=== PATIENT | female | born 1950 ===

== ENCOUNTER 2020-09-12 08:14 | Outpatient (REF) | payer MEDICARE, MEDICAID, SELFPAY ==
[2020-09-12 11:56] LABS: SARS COV2 PCR INHOUSE NEGATIVE (Negative)
== END 2020-09-12 08:15 | disposition home or self-care (01) ==
LOC: HO.LAB 08:14
PROVIDERS: Visit Provider Internal Medicine
DX: Z20.822 Contact with and (suspected) exposure to COVID-19 (principal)
CPT/HCPCS: C9803; U0003

== ENCOUNTER → 2021-01-09 10:01 | Outpatient (BNVA) | payer MEDICARE, MEDICAID, SELFPAY | PROVIDERS: PCP Nurse Practitioner Family; Visit Provider Internal Medicine Cardiovascular Disease | DX: I25.10 Atherosclerotic heart disease of native coronary artery without angina pectoris (principal); I10 Essential (primary) hypertension; I83.893 Varicose veins of bilateral lower extremities with other complications | CPT/HCPCS: 93005; 99212 ==

== ENCOUNTER 2021-01-10 21:32 | Emergency (ER) | payer MEDICARE, MEDICAID, SELFPAY ==
[2021-01-10 21:36] VITALS: BP 179/70; PULSE 68; RESP 18; TEMP 36.6; O2SAT 99; BMI 29.6
[2021-01-10 22:43] LABS: Basophils Percent Auto 0.4 % (0-2); Eosinophils Absolute Auto 0.1 X10*3/uL (0.0-0.4); Eosinophils Percent Auto 1.4 % (0-4); Hematocrit 39.3 % (37-47); Hemoglobin 12.7 g/dl (12.0-16.0); Imm Gran Abs Auto 0.01 X10*3/uL (0.00-0.03); Imm Gran Pct Auto 0.1 % (0.0-0.4); Lymphocytes Absolute Auto 2.3 X10*3/uL (1.2-4.9); Lymphocytes Percent Auto 27.3 % (20-40); MANUAL DIFF FLAG NO; Mean Corpuscular HGB Conc 32.3 g/dl (31.0-35.0); Mean Corpuscular Hemoglobin 26.6 pg (27.0-33.0); Mean Corpuscular Volume 82.4 fL (80-98); Monocytes Absolute Auto 0.7 X10*3/uL (0.1-1.2); Monocytes Percent Auto 8.3 % (2-11); Neutrophils Absolute Auto 5.4 X10*3/uL (2.0-8.3); Neutrophils Percent Auto 62.5 % (45-73); Platelet Count 338 X10*3/uL (160-400); Red Blood Count 4.77 X10*6/uL (4.20-5.50); White Blood Count 8.6 X10*3/uL (4.8-10.8)
[2021-01-10 23:11] LABS: Glucose Urine UA NEG (NEG); Leukocyte Esterase Urine TRACE (NEG); Nitrite Urine NEG (NEG); UACC Culture Trigger YES; Urine Blood TRACE (NEG); Urine Ketones NEG (NEG); Urine Protein NEG (NEG-TRACE)
[2021-01-10 23:17] LABS: Appearance Urine CLEAR; Color Urine YELLOW
[2021-01-10 23:18] LABS: Anion Gap 13 (12-20); Blood Urea Nitrogen 10 mg/dL (9-16); Calcium 10.8 mg/dL (8.4-10.2); Carbon Dioxide 28 mmol/L (22-29); Chloride 104 mmol/L (96-108); Creatinine Clr Calc Pharmacy 57.9; Estimated Glomerular Filt Rate > 60; Glucose Random 105 mg/dL (60-115); Potassium 3.6 mmol/L (3.3-5.1); Sodium 141 mmol/L (135-145)
[2021-01-10 23:18] LABS: Bacteria Urine 1+ /LPF; Squamous Epithelial Cell Urine 1+ /LPF
--- NOTE | 2021-01-10 23:44 | ED_ITS ---
HPI - General Adult General Chief complaint: General Medical Stated complaint: high blood pressure, history of heart attack Time Seen by Provider: 01/10/21 23:33 Source: patient and family Mode of arrival: ambulatory Limitations: no limitations History of Present Illness HPI narrative: 70 y/o female with history of HTN, CAD, varicose veins who presents to the ER with hypertension. She reports her blood pressure has been elevated today in the 170s systolic. Her usual range is 120-150s. She is on isosorbide, metoprolol, and losartan/hctz which she has been complaint with. She reports a generalized headache earlier today which has since resolved. No vision changes. No chest pain or SOB. She was seen by her Chassis Inspector yesterday Dr. Day with plan to call his office if her BP was persistently elevated. She a dmits to being anxious today and came to the ER for evaluation. MD complaint: HTN Onset (ago): hour(s) Location: head Radiation: non-radiation Severity: moderate Quality: aching Pain Consistency: now resolved Relieving factors: none Exacerbating factors: none Associated symptoms: denies other symptoms Treatments prior to arrival: none Related Data Home Medications Medication Instructions Recorded Confirmed losartan 100 1 tab PO DAILY tab 01/09/21 01/09/21 mg-hydrochlorothiazide 25 mg tablet Previous Rx's Medication Instructions Recorded rosuvastatin 40 mg tablet 40 mg PO DAILY #90 tab 05/16/20 aspirin 81 mg tablet,delayed 81 mg PO DAILY 90 Days #90 tab 05/17/20 release metoprolol succinate 25 mg 25 mg PO DAILY #90 cap 09/14/20 tablet,extended release 24 hr isosorbide mononitrate 60 mg 60 mg PO DAILY #30 tab 01/09/21 tablet,extended release 24 hr Allergies Allergy/AdvReac Type Severity Reaction Status Date / Time peanut [PEANUT] Allergy Unknown HIVES Verified 01/10/21 21:36 peanuts Allergy Unknown rash Uncoded 01/11/20 00:00 Review of Systems Review of Systems: Constitutional: No Fever, No Chills ENT/Mouth: No sore throat, No Rhinorrhea, No Swallowing Difficulty Eyes: No Eye Pain, No vision changes Cardiovascular: No Chest Pain, No SOB, No Orthopnea, No Edema Respiratory: No Cough, No Sputum, No Wheezing, No dyspnea Gastrointestinal: No Nausea, No Vomiting, No Diarrhea, No abdominal Pain Musculoskeletal: No joint pain, No Myalgias Skin: No Skin Lesions, No rash Neuro: No Weakness, No Numbness, No Dizziness,+ Headache (now resolved) Psych: + Anxiety/Panic, No Depression Heme/Lymph: No Bruising, No Lymphadenopathy PMFSH Past Medical History Medical History (Updated 01/10/21 @ 23:51 by LAILA Mckeon) CAD (coronary artery disease) HTN (hypertension) Hyperlipidemia Hypertensive heart disease Hypothyroid Family History Family History Father No problems noted. Mother No problems noted. Social History Social History Patient Tobacco Use Status: Never used Tobacco Advance Directives: No Advance Directives Information Provided: Yes Advance Directives on File: No Physical Exam Vital Signs: Vital Signs: Last Vital Signs Temp 97.9 F 01/10/21 21:36 Pulse 60 01/10/21 23:58 Resp 16 01/10/21 23:58 BP 166/74 H 01/10/21 23:58 Pulse Ox 98 01/10/21 23:58 Body Mass Index 29.6 Appearance: Alert. Oriented X3. No acute distress. Eyes: Pupils equal, round and reactive to light. ENT: Pharynx normal. Neck: Normal inspection. Neck supple. CVS: Normal heart rate and rhythm. Pulses normal. Respiratory: No respiratory distress. Breath sounds normal. Abdomen: Soft and nontender. +BS x4 Skin: Skin warm and dry. Normal skin color. Normal skin turgor. No rashes. Extremities: No lower extremity edema. Neuro: Oriented X 3. No motor deficit. No sensory deficit. Course Course Course Narrative: 70 y/o female with history of HTN, CAD, and varicose veins who presents with HTN at home associated with headache. BP in triage 179/70 with HR 60's. Labs drawn and UA preformed which all were unremarkable. Repeat without intervention was 166/74. She has no headache, vision changes or chest pain. She feels well. She is stable for discharge home with continuation of current antihypertensive regimen and plan to follow up with Dr. Day if her BP remains elevated. Worrisome signs to prompt urgent re-evaluation to the ER were discussed. Stable for d/c home with outpatient follow up. Medical Decision Making Lab Data Result diagrams: 01/10/21 22:37 01/10/21 22:37 Labs: Lab Results 01/10/21 01/10/21 01/10/21 Range/Units 22:37 22:37 22:49 WBC 8.6 (4.8-10.8) X10*3/uL RBC 4.77 (4.20-5.50) X10*6/uL Hgb 12.7 (12.0-16.0) g/dl Hct 39.3 (37-47) % MCV 82.4 (80-98) fL MCH 26.6 L (27.0-33.0) pg MCHC 32.3 (31.0-35.0) g/dl RDW 14.0 (11.0-16.0) % Plt Count 338 (160-400) X10*3/uL MPV 10.0 (9.4-12.3) fL Immature Gran % (Auto) 0.1 (0.0-0.4) % Neut % (Auto) 62.5 (45-73) % Lymph % (Auto) 27.3 (20-40) % [place] % (Auto) 8.3 (2-11) % Eos % (Auto) 1.4 (0-4) % Baso % (Auto) 0.4 (0-2) % Lymph # (Auto) 2.3 (1.2-4.9) X10*3/uL [place] # (Auto) 0.7 (0.1-1.2) X10*3/uL Eos # (Auto) 0.1 (0.0-0.4) X10*3/uL Baso # (Auto) 0.0 (0.0-0.2) X10*3/uL Abs Immat Gran (auto) 0.01 (0.00-0.03) X10*3/uL Absolute Neuts (auto) 5.4 (2.0-8.3) X10*3/uL Absolute Nucleated RBC 0.000 (0.0-0.012) X10*3/uL Nucleated RBC % (auto) 0.0 (0.0-0.2) /100WBC Sodium 141 (135-145) mmol/L Potassium 3.6 (3.3-5.1) mmol/L Chloride 104 (96-108) mmol/L Carbon Dioxide 28 (22-29) mmol/L Anion Gap 13 (12-20) BUN 10 (9-16) mg/dL Creatinine 0.86 (0.5-1.4) mg/dL Estim Creat Clear Calc 57.9 Estimated GFR > 60 Random Glucose 105 (60-115) mg/dL Calcium 10.8 H (8.4-10.2) mg/dL Urine Color YELLOW Urine Appearance CLEAR Urine pH 7.0 (5.0-8.0) Ur Specific [place] 1.010 (1.005-1.025) Urine Protein NEG (NEG-TRACE) MG/DL Urine Glucose (UA) NEG (NEG) MG/DL Urine Ketones NEG (NEG) MG/DL Urine Blood TRACE (NEG) Urine Nitrite NEG (NEG) Ur Leukocyte Esterase TRACE H (NEG) Urine RBC 1-4 (0) /HPF Urine WBC 1-4 (0-4) /HPF Ur Squamous Epith Cells 1+ /LPF Urine Bacteria 1+ /LPF Critical Care Time Critical Care Time Critical Care Time: No Discharge Plan Discharge Clinical Impression: HTN (hypertension) Qualifiers: Hypertension type: primary hypertension Qualified Code(s): I10 - Essential (primary) hypertension Patient Disposition: Home, Self-Care Instructions: Low-Sodium Diet (ED), Hypertension (ED) Additional Instructions: Your lab workup today was unremarkable. Your blood pressure was 166/74. Recommend continuing your current blood pressure medications. Monitor your blood pressure at home after your take your meds. If you find your blood pressure is consistently elevated, call Dr. Day's office to see if he would like to see you in the office or make any medication adjustments. If you develop any chest pain, vision changes, severe headache or any other concerning symptoms, call 911 or come back to the ER for further evaluation. Prescriptions: No Action rosuvastatin 40 mg tablet 40 mg PO DAILY Qty: 90 RF: 3 aspirin 81 mg tablet,delayed release (DR/EC) 81 mg PO DAILY 90 Days Qty: 90 RF: 3 metoprolol succinate 25 mg tablet extended release 24 hr 25 mg PO DAILY Qty: 90 RF: 1 losartan-hydrochlorothiazide 100-25 mg tablet 1 tab PO DAILY RF: 0 isosorbide mononitrate 60 mg tablet extended release 24 hr 60 mg PO DAILY Qty: 30 RF: 0 Referrals: Hany Day MD [Physician] - 1 week (HTN) Interventions: ED Discharge Assessment Last Done: 01/10/21 23:59 Discharge Date/Time: 01/11/21 00:19
[2021-01-10 23:58] VITALS: BP 166/74; PULSE 60; RESP 16; O2SAT 98
== END 2021-01-11 00:19 | disposition home or self-care (01) ==
LOC: HO.ED 01-11
PROVIDERS: Emergency Provider Student in an Organized Health Care Education/Training Program; PCP Nurse Practitioner
DX: I10 Essential (primary) hypertension (principal)
CPT/HCPCS: 36415; 80048; 81001; 81003; 85025; 87086; 99283; 99284

== ENCOUNTER 2021-01-19 09:44 | Outpatient (REF) | payer MEDICARE, MEDICAID, SELFPAY ==
[2021-01-19 11:03] LABS: Cholesterol 131 mg/dL; HDL Cholesterol 37 mg/dL; LDL Cholesterol Calculated 72 mg/dl; Triglycerides 112 mg/dL
== END 2021-01-19 09:45 | disposition home or self-care (01) ==
LOC: HO.LAB 09:44
PROVIDERS: PCP Nurse Practitioner; Visit Provider Internal Medicine Cardiovascular Disease
DX: I25.10 Atherosclerotic heart disease of native coronary artery without angina pectoris (principal)
CPT/HCPCS: 36415; 80061

== ENCOUNTER → 2021-02-08 14:24 | Outpatient (BNVA) | payer MEDICARE, MEDICAID, SELFPAY | PROVIDERS: PCP Nurse Practitioner; Referring Provider Nurse Practitioner; Visit Provider Surgery Vascular Surgery | DX: I83.11 Varicose veins of right lower extremity with inflammation (principal) | CPT/HCPCS: 99202 ==

== ENCOUNTER 2021-02-27 12:29 | Outpatient (REF) | payer MEDICARE, MEDICAID, SELFPAY ==
--- NOTE | ~2021-02-27 | US_ITS ---
EXAMINATION: BILATERAL LOWER EXTREMITY VENOUS ULTRASOUND (Reflux Exam) CLINICAL INDICATION: This is a 70-year-old female with venous insufficiency and varicose veins. COMPARISON: None. TECHNIQUE: Color flow triplex imaging and compression Doppler was performed to evaluate both the deep and the superficial systems bilaterally. To evaluate the superficial system, the examination was performed in the upright position. Color-flow Doppler ultrasound and compression ultrasound were utilized. In addition, maneuvers were utilized to demonstrate reflux. FINDINGS: 1. DEEP VENOUS ULTRASOUND OF THE RIGHT LOWER EXTREMITY: Common Femoral Vein: There is deep vein common femoral reflux with the reflux time 1384 ms. Femoral vein: There is deep vein midfemoral reflux with reflux time of 864 ms. Popliteal Vein: There is deep vein reflux involving the popliteal vein with the reflux time of 1480 ms. Deep Reflux: There is evidence of reflux in the deep system in the common femoral vein extending into the popliteal vein. . There is no evidence of a Thapa's cyst. 2. SUPERFICIAL ULTRASOUND WITH DOPPLER OF RIGHT LOWER EXTREMITY GREAT SAPHENOUS VEIN: Saphenofemoral junction: 1.1 cm. The reflux time is 2364 ms. Mid thigh: 0.8 cm. The reflux time is 3240 ms. Above knee: 1.0 cm. The reflux time is 3316 ms. Below knee: 0.7 cm. The reflux time is 2600 ms. Mid calf: 0.4 cm the reflux time is 3400 ms. Ankle: 0.3 cm. The reflux time is 1832 ms. GSV REFLUX: There is reflux extending throughout the great saphenous vein beginning at the saphenofemoral junction. This is supplying the varicose veins within the leg. DUPLICATED GREAT SAPHENOUS VEIN: There is a 0.5 cm duplicated lateral great saphenous vein without evidence of reflux. SMALL SAPHENOUS VEIN: Upper: 0.5 cm. There is reflux of 1520 ms. Lower: 0.3 cm. No reflux is seen in the distal calf. SSV REFLUX: There is reflux in the small saphenous vein beginning at the junction. VEIN OF GIACOMINI: None Imaged. PERFORATORS: There are calf perforators measuring 0.3 cm without reflux. VARICOSITIES: There are varicose veins in the thigh at the knee and the calf. These are supplied by both the great saphenous vein and small saphenous vein, respectively. In the mid calf varicose veins measure 0.8 cm with the reflux time 1772 ms. At the knee measuring 1.4 cm with reflux time of 2412 ms. In the calf measuring 0.7 cm with the reflux time of 2112 ms. 3. DEEP VENOUS ULTRASOUND OF THE LEFT LOWER EXTREMITY: Common Femoral Vein: Compressible, normal respiratory variation and augmented flow. No reflux. Femoral vein: There is reflux in the mid femoral deep vein system with the reflux time of 1188 ms. Popliteal Vein: There is reflux in the popliteal deep vein system with the reflux time of 1996 ms. Deep Reflux: There is evidence of reflux in the deep system within the femoral vein and the popliteal vein. The reflux is not seen in the common femoral vein 4. SUPERFICIAL ULTRASOUND WITH DOPPLER OF LEFT LOWER EXTREMITY GREAT SAPHENOUS VEIN: Saphenofemoral junction: 0.8 cm. There is no reflux. Mid thigh: 0.3 cm. There is no reflux. Above knee: 0.3 cm there is no reflux. Below knee: 0.4 cm. There is no reflux. Mid calf: 0.2 cm. The reflux time is 2980 ms. Ankle: 0.3 cm. The reflux time is 3128 ms. GSV REFLUX: There is no reflux at the saphenofemoral junction. There is distal great saphenous vein reflux present. DUPLICATED GREAT SAPHENOUS VEIN: None SMALL SAPHENOUS VEIN: Upper: 0.2 cm. There is reflux of 2003 and 40 ms at the junction. Lower: 0.2 cm. There is no reflux at this level. SSV REFLUX: There is reflux in the small saphenous vein at the junction. VEIN OF GIACOMINI: None Imaged. PERFORATORS: None Imaged VARICOSITIES: There are 0.3 and 0.4 cm varicose veins in the thigh and calf, respectively. There is greater than 3 seconds in the calf varicose veins. US/US venous duplex LE BI IMPRESSION: 1. There is a patent right great saphenous vein with reflux throughout. The reflux begins at the saphenofemoral junction and is supplying the varicose veins. 2. There is a patent duplicated right lateral great saphenous vein without reflux. 3. There is a patent right small saphenous vein with reflux at the junction. This is supplying the varicose veins in the calf. 4. There are multiple varicose veins as described in the right leg are supplied by the refluxing superficial venous system. 5. There is a patent left great saphenous vein without evidence of reflux at the junction. There is isolated reflux distally. 6. There is a patent left small saphenous vein with reflux at the junction. 7. There are varicose veins in the left leg with reflux as described. These are supplied by the refluxing small saphenous vein.
== END 2021-02-27 12:30 | disposition home or self-care (01) ==
LOC: HO.US 12:29
PROVIDERS: PCP Nurse Practitioner; Visit Provider Surgery Vascular Surgery
DX: I83.893 Varicose veins of bilateral lower extremities with other complications (principal); I83.11 Varicose veins of right lower extremity with inflammation
CPT/HCPCS: 93970

== ENCOUNTER → 2021-03-15 14:59 | Outpatient (BNVA) | payer MEDICARE, MEDICAID, SELFPAY | PROVIDERS: PCP Nurse Practitioner; Visit Provider Surgery Vascular Surgery | DX: I83.11 Varicose veins of right lower extremity with inflammation (principal) | CPT/HCPCS: 99212 ==

== ENCOUNTER → 2021-03-30 08:54 | Outpatient (BNVA) | payer MEDICARE, MEDICAID, SELFPAY | PROVIDERS: PCP Nurse Practitioner; Visit Provider Surgery Vascular Surgery | DX: I83.11 Varicose veins of right lower extremity with inflammation (principal) | CPT/HCPCS: 36475 ==

== ENCOUNTER 2021-04-02 14:18 | Outpatient (REF) | payer MEDICARE, MEDICAID, SELFPAY ==
--- NOTE | ~2021-04-02 | US_ITS ---
EXAMINATION: US VENOUS ULTRASOUND WITH DOPPLER LOWER EXTREMITY, RIGHT CLINICAL INFORMATION: Status post right RFA. COMPARISON: None TECHNIQUE: Ultrasound of the deep veins is performed from the hip to the calf with compression sonography and color and pulse Doppler assessment. Spectral analysis with color-flow imaging is performed. FINDINGS: There is normal venous compression and respiratory variation and augmented flow. The visualized common femoral vein, superficial femoral vein, profunda femoral vein, popliteal vein, and the trifurcation region shows no evidence of deep venous thrombosis. The peroneal vein is not seen optimally. There is a clot visualized in right greater saphenous vein approximately 2.1 cm from the confluence following right femoral artery ablation There is Thapa's cyst measuring 5.5 x 1.4 x 3.9 cm. There is small anechoic lymph node in the groin measuring 3.2 x 1.0 x 1.6 cm. US/US venous duplex LE RT IMPRESSION: No DVT demonstrated in the right lower extremity. Status post right femoral artery ablation with thrombus visualized in right greater saphenous vein proximal thigh 2.1 cm from the confluence. Small Thapa's cyst measuring 5.5 cm. There is a small right groin lymph node.
== END 2021-04-02 14:19 | disposition home or self-care (01) ==
LOC: HO.US 14:18
PROVIDERS: PCP Nurse Practitioner; Visit Provider Surgery Vascular Surgery
DX: M79.604 Pain in right leg (principal)
CPT/HCPCS: 93971

== ENCOUNTER → 2021-04-12 15:29 | Outpatient (BNVA) | payer MEDICARE, MEDICAID, SELFPAY | PROVIDERS: PCP Nurse Practitioner; Visit Provider Surgery Vascular Surgery | DX: I83.11 Varicose veins of right lower extremity with inflammation (principal) | CPT/HCPCS: 99212 ==

== ENCOUNTER → 2021-05-03 15:28 | Outpatient (BNVA) | payer MEDICARE, MEDICAID, SELFPAY | PROVIDERS: PCP Nurse Practitioner; Visit Provider Surgery Vascular Surgery | DX: I83.11 Varicose veins of right lower extremity with inflammation (principal); I25.10 Atherosclerotic heart disease of native coronary artery without angina pectoris; I11.9 Hypertensive heart disease without heart failure; E03.9 Hypothyroidism, unspecified; E78.5 Hyperlipidemia, unspecified; Z91.010 Allergy to peanuts | CPT/HCPCS: 99212 ==

== ENCOUNTER 2021-12-12 13:19 | Outpatient (REF) | payer MEDICARE, MEDICAID, SELFPAY ==
--- NOTE | ~2021-12-12 | MM_ITS ---
EXAMINATION: BONE DENSITOMETRY CLINICAL INDICATION: Menopause. COMPARISON: Previous BD dated 11/27/2017 and baseline BD dated 04/25/2011. TECHNIQUE: Using a [employer] DXA System (software version: 13.1) manufactured by [employer], dual-energy x-ray absorptiometry was performed of the lumbar spine and left hip. The images are of good technical quality. Summary results are attached. FINDINGS: AP SPINE L1-L4: Current: BMD 0.976 g/cm2, Z-score -0.5, T-score -1.7, osteopenia, 8.7% decrease from previous, 6.9% decrease from baseline (<5% change is not significant). Prior: BMD 1.069 g/cm2. Baseline: BMD 1.048 g/cm2. LEFT FEMUR, NECK: Current: BMD 0.898 g/cm2, Z-score 0.4, T-score -1.0, normal. Prior: BMD 0.929 g/cm2. Baseline: BMD 0.968 g/cm2. LEFT FEMUR, TOTAL: Current: BMD 0.983 g/cm2, Z-score 0.9, T-score -0.2, normal, 5.4% decrease from previous, 4.7% decrease from baseline (<5% change is not significant). Prior: BMD 1.039 g/cm2. Baseline: BMD 1.031 g/cm2. IDENTIFIED RISK FACTORS: Early menopause, secondary osteoporosis, hysterectomy, bilateral oophorectomy. HISTORY OF FRACTURE: None listed. MEDICATIONS: None listed. MM/XR DEXA axial skeleton IMPRESSION: 1. DIAGNOSIS: Osteopenia based on the lowest T-score value of -1.7 in the lumbar spine applying World Health Organization criteria. 2. 10-YEAR FRACTURE RISK PREDICTION, FRAX: Major osteoporotic fracture (clinical spine, forearm, hip or shoulder) 4.6%. Hip fracture 0.5%. 3. Treatment Recommendations: NOF guidelines recommend consideration for treatment in postmenopausal women and men age 50 and older presenting with the following: -A hip or vertebral (clinical or morphometric) fracture. -T-score less than or equal to -2.5 at the femoral neck or spine after appropriate evaluation to exclude secondary causes. -Low bone mass at the hip or spine and a 10-year fracture probability by FRAX of greater than or equal to 3% for hip fracture or greater than or equal to 20% for major osteoporotic fracture based on the [place] adapted WHO algorithm. 4. Other Recommendations: All treatment decisions require clinical judgment and consideration of individual patient factors, including patient preferences, comorbidities, previous drug use, risk factors not captured in the FRAX model (e.g. frailty, falls, vitamin D deficiency, increased bone turnover, interval significant decline in bone density) and possible under or overestimation of fracture risk by FRAX. Additional medical evaluation for secondary cause of low bone mineral density may be appropriate. FUTURE SCAN RECOMMENDATION: People with diagnosed cases of osteoporosis or at high risk for fracture should have regular bone mineral density tests. For patients eligible for Medicare, routine testing is allowed once every 2 years. The testing frequency can be increased to one year for patients who have rapidly progressing disease, those who are receiving or discontinuing medical therapy to restore bone mass, or have additional risk factors.
--- NOTE | ~2021-12-12 | MM_ITS ---
EXAMINATION: MM SCREENING DIGITAL BREAST TOMOSYNTHESIS, BILATERAL CLINICAL INFORMATION: Screening. Asymptomatic. The lifetime risk of breast cancer based on the Tyrer-Cuzick Model is 2%. COMPARISON: Mammography: 11/13/2017, 08/23/2016, 07/07/2015 TECHNIQUE: Digital breast tomosynthesis is performed in both the craniocaudal and mediolateral oblique views along with computer-aided detection (CAD). Synthesized 2D images are generated from the tomosynthesis. FINDINGS: There are scattered areas of fibroglandular density (ACR BI-RADS breast composition Category b). There are no significant masses, abnormal calcifications, or other abnormalities. Parenchymal pattern is similar to prior studies. The axilla and skin contours are unremarkable. MM/MM tomosynthesis screening BI IMPRESSION: No mammographic evidence of malignancy. ASSESSMENT: BI-RADS 1: Negative RECOMMENDATION: Routine annual mammography screening. This patient's information was entered into a reminder system with a target due date for their next mammogram.
== END 2021-12-12 13:20 | disposition home or self-care (01) ==
LOC: HO.MAMMO 13:19
PROVIDERS: PCP Nurse Practitioner; Visit Provider Nurse Practitioner
DX: Z12.31 Encounter for screening mammogram for malignant neoplasm of breast (principal); Z13.820 Encounter for screening for osteoporosis; Z78.0 Asymptomatic menopausal state
CPT/HCPCS: 77063; 77067; 77080

== ENCOUNTER → 2022-01-10 11:00 | Outpatient (BNVA) | payer MEDICARE, MEDICAID, SELFPAY | PROVIDERS: PCP Nurse Practitioner; Referring Provider Nurse Practitioner; Visit Provider Internal Medicine Cardiovascular Disease | DX: I25.10 Atherosclerotic heart disease of native coronary artery without angina pectoris (principal); I10 Essential (primary) hypertension | CPT/HCPCS: 93005; 99212 ==

== ENCOUNTER → 2022-05-15 11:17 | Outpatient (BNVA) | payer MEDICARE, MEDICAID, SELFPAY | PROVIDERS: PCP General Practice; Visit Provider Nurse Practitioner Family | DX: K21.9 Gastro-esophageal reflux disease without esophagitis (principal); R14.0 Abdominal distension (gaseous); Z12.11 Encounter for screening for malignant neoplasm of colon | CPT/HCPCS: 99202 ==

== ENCOUNTER 2022-06-27 03:55 | Emergency (ER) | payer MEDICARE, MEDICAID, SELFPAY ==
--- NOTE | 2022-06-27 | ECG_ITS ---
Test Reason : CHEST PAIN Blood Pressure : / mmHG Vent. Rate : 079 BPM Atrial Rate : 079 BPM P-R Int : 186 ms QRS Dur : 094 ms QT Int : 398 ms P-R-T Axes : 057 018 046 degrees QTc Int : 456 ms Normal sinus rhythm Normal ECG When compared with ECG of 15-OCT-2015 00:19, [place] interval has decreased Nonspecific T wave abnormality now evident in Lateral leads Referred By: Generic ED Physician Electronically Signed By:John Olson
--- NOTE | ~2022-06-27 | XR_ITS ---
EXAMINATION: XR CHEST CLINICAL INFORMATION: Chest pain COMPARISON: 10/15/2015 TECHNIQUE: Frontal view of the chest was obtained. FINDINGS: The lungs are well expanded. There is no focal consolidation, edema, or effusion. No pneumothorax. The cardiomediastinal silhouette is within normal limits. No acute osseous abnormality. XR/XR chest 1V IMPRESSION: No acute pulmonary disease.
[2022-06-27 03:59] VITALS: BP 148/80; PULSE 96; O2SAT 96; BMI 31.8
[2022-06-27 04:10] VITALS: BP 175/87; PULSE 80; RESP 22; TEMP 37.2; O2SAT 97
[2022-06-27 04:14] LABS: Basophils Absolute Auto 0.1 X10*3/uL (0.0-0.2); Basophils Percent Auto 0.9 % (0-2); Eosinophils Absolute Auto 0.2 X10*3/uL (0.0-0.4); Eosinophils Percent Auto 3.3 % (0-4); Hematocrit 42.5 % (37.0-47.0); Hemoglobin 13.9 g/dl (12.0-16.0); Imm Gran Abs Auto 0.02 X10*3/uL (0.00-0.03); Imm Gran Pct Auto 0.3 % (0.0-0.4); Lymphocytes Absolute Auto 2.6 X10*3/uL (1.2-4.9); Lymphocytes Percent Auto 36.7 % (20-40); MANUAL DIFF FLAG NO; Mean Corpuscular HGB Conc 32.7 g/dl (31.0-35.0); Mean Corpuscular Hemoglobin 27.6 pg (27.0-33.0); Mean Corpuscular Volume 84.3 fL (80.0-98.0); Mean Platelet Volume 9.8 fL (9.4-12.3); Monocytes Absolute Auto 0.7 X10*3/uL (0.1-1.2); Monocytes Percent Auto 10.5 % (2-11); Neutrophils Absolute Auto 3.4 x10*3/uL (2.0-8.3); Neutrophils Percent Auto 48.3 % (45-73); Platelet Count 342 X10*3/uL (160-400); Red Blood Count 5.04 X10*6/uL (4.20-5.50); Red Cell Distribution Width 14.2 % (11.0-16.0)
[2022-06-27 04:37] LABS: Troponin-I High Sensitivity < 3.5 ng/L (<3.5-17.0)
[2022-06-27 04:41] LABS: Alanine Aminotransferase 61 U/L (0-31); Albumin Level 4.2 g/dL (3.5-5.0); Alkaline Phosphatase 82 U/L (39-117); Anion Gap 14 (12-20); Aspartate Amino Transferase 57 U/L (5-31); Bilirubin Total 0.4 mg/dL (0.0-1.0); Blood Urea Nitrogen 11 mg/dL (9-16); Calcium 9.7 mg/dL (8.4-10.2); Carbon Dioxide 23 mmol/L (22-29); Chloride 108 mmol/L (96-108); Creatinine Clr Calc Pharmacy 67.8; Estimated Glomerular Filt Rate > 60; Glucose Random 104 mg/dL (60-115); Potassium 3.5 mmol/L (3.3-5.1); Sodium 141 mmol/L (135-145); Total Protein 7.1 g/dL (6.5-8.0)
--- NOTE | 2022-06-27 05:46 | PC.NURSE ---
Pt resting quietly, no needs expressed at this time.
--- NOTE | 2022-06-27 06:13 | ED.CHESTPAIN ---
HPI - Chest Pain General Chief Complaint: Chest Pain Stated Complaint: Left Sided Cp Time Seen by Provider: 06/27/22 06:08 Source: patient and family Mode of arrival: ambulatory Limitations: no limitations History of Present Illness HPI narrative: Patient comes to the emergency room complaining of 2 days of intermittent chest pain. Patient states that she feels something sharp that last for less than a 2nd and then goes away. Patient states she has had this sharp pains multiple times in the last couple of days. At this time, patient has no chest pain or shortness of breath. EN route to the hospital, patient was given aspirin and nitroglycerin by the paramedics. At this time, patient is asymptomatic Related Data Home Medications Medication Instructions Recorded Confirmed levothyroxine 88 mcg tablet 88 mcg PO DAILY 03/30/21 Previous Rx's Medication Instructions Recorded aspirin 81 mg tablet,delayed 81 mg PO DAILY 90 days #90 tabs 05/17/20 release metoprolol succinate 25 mg 25 mg PO DAILY #90 caps 09/14/20 tablet,extended release 24 hr losartan 100 1 tab PO DAILY 90 days #90 tabs 09/19/21 mg-hydrochlorothiazide 25 mg tablet isosorbide mononitrate 60 mg 60 mg PO DAILY 90 days #90 tabs 11/14/21 tablet,extended release 24 hr amlodipine 2.5 mg tablet 2.5 mg PO QPM #30 tabs 01/10/22 rosuvastatin 40 mg tablet 40 mg PO DAILY #90 tabs 05/01/22 bisacodyl 5 mg tablet,delayed 10 mg PO ONCE 1 day #2 tabs 05/15/22 release (Dulcolax (bisacodyl)) polyethylene glycol 3350 17 238 g PO ONCE #238 grams 05/15/22 gram/dose oral powder (Miralax) Allergies Allergy/AdvReac Type Severity Reaction Status Date / Time peanut [PEANUT] Allergy Unknown HIVES Verified 05/15/22 11:38 peanuts Allergy Unknown rash Uncoded 04/12/21 15:36 Review of Systems Review of Systems: Constitutional : No Weight loss, No Fever, No Chills, No Night Sweats, No Fatigue, No Malaise ENT/Mouth : No Hearing loss, No Ear Pain, No Nasal Congestion, No Sinus Pain, No Hoarseness, No sore throat, No Rhinorrhea, No Swallowing Difficulty Eyes: No Eye Pain, No Swelling, No Redness, No Foreign Body, No Discharge, No Vision Changes Cardiovascular : Complaining of intermittent sharp Chest Pain, No SOB, No Dyspnea on Exertion, No Orthopnea, No Edema, No Palpitations Respiratory : No Cough, No Sputum, No Wheezing, No Smoke Exposure, No Dyspnea Gastrointestinal : No Nausea, No Vomiting, No Diarrhea, No Constipation, No abdominal Pain, No Hematochezia, No Melena Genitourinary : no irregular bleeding, No Dysuria, No Urinary Frequency, No Hematuria, No Urinary Incontinence, No Urgency, No Flank Pain, No Urinary Flow Changes, No Hesitancy Musculoskeletal : No joint pain, No Myalgias, No Joint Swelling Skin : No Skin Lesions, No rash Neuro : No Weakness, No Numbness, No Paresthesias, No Loss of Consciousness, No Dizziness, No Headache Psych : No Anxiety/Panic, No Depression, No SI/HI/AH/VH, No Social Issues, Heme/Lymph: No Bruising, No Bleeding,No Lymphadenopathy Endocrine : No Polyuria, No Polydipsia, No Temperature Intolerance [facility] Past Medical History Medical History CAD (coronary artery disease) HTN (hypertension) Hyperlipidemia Hypertensive heart disease Hypothyroid Family History Family History Father No problems noted. Mother No problems noted. Social History Social History Patient Tobacco Use Status: Never used Tobacco Advance Directives: No Physical Exam Vital Signs: Vital Signs: Last Vital Signs Temp 99.0 F 06/27/22 04:10 Pulse 80 06/27/22 04:10 Resp 22 H 06/27/22 04:10 BP 175/87 H 06/27/22 04:10 Pulse Ox 97 06/27/22 04:10 O2 Del Method 06/27/22 04:10 BMI result Body Mass Index 31.8 Const: Other: Appearance: Alert. Oriented X3. No acute distress. Eyes: Pupils equal, round and reactive to light. ENT: Pharynx normal. Neck: Normal inspection. Neck supple. No lymph nodes noted. No crepitus CVS: Normal heart rate and rhythm. Pulses normal. Normal S1 and S2 Respiratory: No respiratory distress. Breath sounds normal. No Wheezing. No rales Abdomen: Soft and nontender. No rigidity. No distention. Skin: Skin warm and dry. Normal skin color. Normal skin turgor. Extremities: No lower extremity edema. No Lacerations. No Rash Neuro: Oriented X 3. No motor deficit. No sensory deficit. Moving all extremities. No slurred speech. CN 2 through 12 grossly intact Psych: calm, cooperative, normal affect Course Course Course Narrative: Patient is asymptomatic, EKG within normal limits, troponin negative. Medical Decision Making Medical Decision Making [facility] Narrative: Patient's troponin 1. Negative, EKG within normal limits, patient asymptomatic. Patient unlikely to have chest pain secondary to cardiac etiology. Most likely musculoskeletal. Patient has history coronary artery disease. Troponin 2. Pending 4 07:00. Anticipating that the patient will be discharged home. Sign-out given to Dr. Lord Differential Diagnosis Differential Diagnoses: The differential diagnosis associated with the presentation includes (ACS, costochondritis, pleurisy) Lab Data [facility] Lab Attestation statement: I reviewed the patient's lab results. 06/27/22 04:08 06/27/22 04:08 Labs: Lab Results 06/27/22 06/27/22 06/27/22 Range/Units 04:08 04:08 04:08 WBC 7.0 (4.8-10.8) X10*3/uL RBC 5.04 (4.20-5.50) X10*6/uL Hgb 13.9 (12.0-16.0) g/dl Hct 42.5 (37.0-47.0) % MCV 84.3 (80.0-98.0) fL MCH 27.6 (27.0-33.0) pg MCHC 32.7 (31.0-35.0) g/dl RDW 14.2 (11.0-16.0) % Plt Count 342 (160-400) X10*3/uL MPV 9.8 (9.4-12.3) fL Immature Gran % (Auto) 0.3 (0.0-0.4) % Neut % (Auto) 48.3 (45-73) % Lymph % (Auto) 36.7 (20-40) % Boyle % (Auto) 10.5 (2-11) % Eos % (Auto) 3.3 (0-4) % Baso % (Auto) 0.9 (0-2) % Lymph # (Auto) 2.6 (1.2-4.9) X10*3/uL Boyle # (Auto) 0.7 (0.1-1.2) X10*3/uL Eos # (Auto) 0.2 (0.0-0.4) X10*3/uL Baso # (Auto) 0.1 (0.0-0.2) X10*3/uL Abs Immat Gran (auto) 0.02 (0.00-0.03) X10*3/uL Absolute Neuts (auto) 3.4 (2.0-8.3) x10*3/uL Absolute Nucleated RBC 0.000 (0.0-0.012) X10*3/uL Nucleated RBC % (auto) 0.0 (0.0-0.2) /100WBC Sodium 141 (135-145) mmol/L Potassium 3.5 (3.3-5.1) mmol/L Chloride 108 (96-108) mmol/L Carbon Dioxide 23 (22-29) mmol/L Anion Gap 14 (12-20) BUN 11 (9-16) mg/dL Creatinine 0.75 (0.5-1.4) mg/dL Estim Creat Clear Calc 67.8 Estimated GFR > 60 Random Glucose 104 (60-115) mg/dL Calcium 9.7 D (8.4-10.2) mg/dL Total Bilirubin 0.4 (0.0-1.0) mg/dL AST 57 H (5-31) U/L ALT 61 H (0-31) U/L Alkaline Phosphatase 82 (39-117) U/L Troponin I High Sens < 3.5 (<3.5-17.0) ng/L Total Protein 7.1 (6.5-8.0) g/dL Albumin 4.2 (3.5-5.0) g/dL Independent Interpretation I performed an independent interpretation of an: EKG (My interpretation: Sinus rhythm, heart rate 79, no ST segment depression or elevation, no T-wave inversion, QTC 456) and Plain X-Ray Interpretation: My interpretation of chest x-ray: No consolidation, no rib fractures or pneumothorax Radiology Impression Discussion of test interpretation with radiology: I have reviewed the radiologist's reading. Radiologist Impression: COMPARISON: 10/15/2015 TECHNIQUE: Frontal view of the chest was obtained. FINDINGS: The lungs are well expanded. There is no focal consolidation, edema, or effusion. No pneumothorax. The cardiomediastinal silhouette is within normal limits. No acute osseous abnormality. XR/XR chest 1V IMPRESSION: No acute pulmonary disease. Discharge Plan Discharge Clinical Impression: Atypical chest pain Patient Disposition: Still a Patient Instructions: Chest Pain (ED) Additional Instructions: Please follow-up with your primary care physician tomorrow. If you have any worsening or new symptoms, please return to the emergency room or call 911 Prescriptions: No Action aspirin 81 mg tablet,delayed release (DR/EC) 81 mg PO DAILY 90 Days Qty: 90 3RF metoprolol succinate 25 mg tablet extended release 24 hr 25 mg PO DAILY Qty: 90 1RF losartan-hydrochlorothiazide 100-25 mg tablet 1 tab PO DAILY 90 Days Qty: 90 3RF isosorbide mononitrate 60 mg tablet extended release 24 hr 60 mg PO DAILY 90 Days Qty: 90 3RF rosuvastatin 40 mg tablet 40 mg PO DAILY Qty: 90 3RF bisacodyl [Dulcolax (bisacodyl)] 5 mg tablet,delayed release (DR/EC) 10 mg PO ONCE 1 Days Qty: 2 0RF Rx Instructions: take 2 tabs at noon the day before your colonoscopy polyethylene glycol 3350 [Miralax] 17 gram/dose powder 238 g PO ONCE Qty: 238 0RF Rx Instructions: As directed by gastroenterology department at [facility] levothyroxine 88 mcg tablet 88 mcg PO DAILY amlodipine 2.5 mg tablet 2.5 mg PO QPM Qty: 30 0RF
[2022-06-27 06:49] VITALS: BP 151/69; PULSE 65; RESP 18; O2SAT 96
[2022-06-27 07:21] LABS: Troponin-I High Sensitivity 4.1 ng/L (<3.5-17.0)
[2022-06-27 07:27] VITALS: BP 183/79; PULSE 69; RESP 14; TEMP 36.7; O2SAT 98
--- NOTE | 2022-06-27 09:17 | PC.NURSE ---
pt is a/o x 4 no sob/rosenda noted speaks in full sentences. lungs - cta. heart sounds regular. denies any chest pain. abd soft and non-tender. no edema noted. pt aware of plan of care.
[2022-06-27 09:38] VITALS: BP 150/74; PULSE 72; RESP 15; TEMP 36.7; O2SAT 98
== END 2022-06-27 09:39 | disposition home or self-care (01) ==
PROVIDERS: Emergency Provider Emergency Medicine; PCP General Practice
DX: R07.89 Other chest pain (principal); I10 Essential (primary) hypertension; E78.5 Hyperlipidemia, unspecified; Z79.82 Long term (current) use of aspirin; Z79.899 Other long term (current) drug therapy; Z79.02 Long term (current) use of antithrombotics/antiplatelets
CPT/HCPCS: 36415; 71045; 80053; 84484; 85025; 93005; 99283; 99284

== ENCOUNTER 2022-10-23 08:48 | Day surgery (SDC) | payer MEDICARE, MEDICAID, SELFPAY ==
[2022-08-30 14:50] VITALS: BMI 33.7
--- NOTE | 2022-10-22 11:59 | P.CONAN_ITS ---
Documented by User: Paloma Orozco NP 10/22/22 12:02 HPI - Anesthesia Eval Consult details Narrative: 71yo F for Colonoscopy [facility] ED 06/2022 with atypical CP - nml EKG, negative serial trops Previously cleared by cardiology [facility] Active Problems Active Problems: All Active Problems (Updated 06/28/22 @ 00:01 by Background Ga) Varicose veins of right lower extremity with inflammation (Acute) Varicose veins of both legs with edema (Acute) Hyperlipidemia (Acute) HTN (hypertension) (Acute) CAD (coronary artery disease) (Acute) Past Medical History Medical History CAD (coronary artery disease) HTN (hypertension) Hyperlipidemia Hypertensive heart disease Hypothyroid Family History Family History Father No problems noted. Mother No problems noted. Social History Social History Patient Tobacco Use Status: Never used Tobacco Advance Directives: No Advance Directives Information Provided: Yes Meds Allergies Allergy/AdvReac Type Severity Reaction Status Date / Time peanut [PEANUT] Allergy Unknown HIVES/RASH Verified 10/22/22 11:56 Home Medications Medication Instructions Recorded Confirmed Last Taken Type levothyroxine 88 mcg tablet 88 mcg PO DAILY 03/30/21 Unknown History Exam Exam Date and Time: October 22, 2022 1159 Height,Weight and Vital Signs: Height 5 ft 2.25 in Weight 84.538 kg Narrative Narrative: EKG 06/2022 Vent. Rate : 079 BPM ? ? Atrial Rate : 079 BPM ?? P-R Int : 186 ms? QRS Dur : 094 ms ? ? QT Int : 398 ms ? ? ? P-R-T Axes : 057 018 046 degrees ?? QTc Int : 456 ms ? Normal sinus rhythm Normal ECG When compared with ECG of 15-OCT-2015 00:19, MA interval has decreased Nonspecific T wave abnormality now evident in Lateral leads Assessment and Plan Assessment Anesthesia Assessment: Chart Reviewed Documented by User: Michelle Betancourt MD 10/23/22 09:40 [facility] Past Medical History Medical History CAD (coronary artery disease) HTN (hypertension) Hyperlipidemia Hypertensive heart disease Hypothyroid Family History Family History Father No problems noted. Mother No problems noted. Family history of problems with anesthesia: No Surgical History History of Problems with Anesthesia: No Social History Social History Patient Tobacco Use Status: Never used Tobacco Advance Directives: No Advance Directives Information Provided: Yes Meds Allergies Allergy/AdvReac Type Severity Reaction Status Date / Time peanut [PEANUT] Allergy Unknown HIVES/RASH Verified 10/22/22 11:56 Home Medications Medication Instructions Recorded Confirmed Last Taken Type levothyroxine 88 mcg tablet 88 mcg PO DAILY 03/30/21 Unknown History Exam Airway Mallampati Class: II (removable partial) TM Dist: >3cm Neck ROM: Full Heart: rrr Lungs: cta Assessment and Plan Assessment Anesthesia Assessment: Anesthesia Plan Discussed Final Anesthetic Review Family History of Problems with Anesthesia: No History of Problems with Anesthesia: No NPO: Yes ASA Class: III Final Preanesthetic Review: No Changes in Pt Med Stat, Meds/Allgs Chart Reviewed and Consent Obtained/Reviewed Patient Risk: Intermediate Procedure Risk: Intermediate Anesthetic Plan Anesthetic Plan: MAC: Disposition: Standard PACU
[2022-10-23] MEDS: Lactated Ringers 1,000 ML 100 ML IVCONT (09:52)
--- NOTE | 2022-10-23 09:59 | PC.NURSE ---
initial bp 202/94 hr stach 116 - reports anxiety and high bp when first in hospital or md office. Dr. Betancourt aware. order received for metoprolol 2.5mg iv, pulled up but recycle bp 178/99 at 10:00 - updated Dr. Betancourt, to hold metoprolol
[2022-10-23 10:00] VITALS: BP 178/99; PULSE 85
[2022-10-23 10:10] VITALS: BMI 32.3
--- NOTE | 2022-10-23 10:12 | MHC.SHP ---
Pre-Procedural Eval Section A Date of Service: 10/23/22 Section B Chief Complaint: pos cologuard test Relevant Family History (Specify if Yes): No Relevant Social History: None Present Medications: see Short Stay Collaborative assessment Medical History: Significant History (CAD (coronary artery disease) HTN (hypertension) Hyperlipidemia Hypertensive heart disease Hypothyroid) History of Previous Operations: No relevant previous surgery Allergies: Allergies Allergy/AdvReac Type Severity Reaction Status Date / Time peanut [PEANUT] Allergy Unknown HIVES/RASH Verified 10/22/22 11:56 Review of Systems Sugical H&P ROS: Negative: Constitution, Cardiovascular, Respiratory, Neurological, Psychiatric, Hem-Onc, Allergic/Immunologic, Gastrointestinal, Genitourinary, Musculoskeletal, Integumentary, Endocrine and Eyes/Ears/Nose/Throat Exam Surgical H&P Exam: Normal: HEENT, Normal: Heart, Normal: Lungs, Normal: Extremities, Normal: Abdomen, Normal: Skin and Normal: Neurological Plan Diagnosis/Plan: Unchanged I have reviewed the history and physical and performed a pertinent physical examination on my patient. No changes have occurred unless specified. Time Spent With Patient Time: Total time managing care of this patient today ____ minutes.
[2022-10-23 10:14] VITALS: BP 202/94; PULSE 109; RESP 18; TEMP 36.1; O2SAT 100
--- NOTE | 2022-10-23 10:14 | W.PM.OPN ---
Operative Note Operative Note Date of Service: 10/23/22 Narrative: Operative Information Procedure Description: Colonoscopy Indication: pos cologuard Anesthesia: MAC COLONOSCOPY Instrument: Olympus variable stiffness pediatric scope 190L Colonoscopy Monitoring: Vital signs and clinical assessment, continuous EKG monitoring, Pulse oximetry, Carbon Dioxide monitoring and blood pressure monitoring were done throughout the procedure. Colon withdrawal time was 25 minutes. Procedure: The patient was placed in the left lateral decubitis position and pre-procedure medications were administered. After a digital rectal examination of the ano-rectum, the video colonoscope was inserted into the rectum and advanced through the colon to the cecum/TI. The colonoscope was slowly withdrawn in a retrograde panoramic fashion and the colon mucosa was carefully examined including a retroflexed view of the rectum. Findings and interventions are described below. Procedure Difficulty: easy Findings: Terminal Ileum-normal Cecum:normal Ascending Colon: few diverticula seen, over the ileocecal valve there was a polypoid area noted 8-10 mm, hard to say if this was just an extension of the ileocecal muocsa which had prolapsed, it was raised with eleview and removed with hot snare Transverse Colon -normal Descending Colon:normal Sigmoid Colon: moderate diverticulosis, at 30 cm from anal verge a mass like semi pedunculated leison occupying 5-60% of lumen was noted. It looked irregular and was biopsied. Rectum: Retroflexion with small internal hemorrhoids, grade I Anorectum - normal Colon preparation: [place] Bowel Preparation Scale Right colon; 2 Transverse colon: 2 Left colon; 2 (0 = Unprepared colon segment with mucosa not seen due to solid stool that cannot be cleared. 1 = Portion of mucosa of the colon segment seen, but other areas of the colon segment not well seen due to staining, residual stool and/or opaque liquid. 2 = Minor amount of residual staining, small fragments of stool and/or opaque liquid, but mucosa of colon segment seen well. 3 = Entire mucosa of colon segment seen well with no residual staining, small fragments of stool or opaque liquid) Impression and Post Procedure Diagnosis: sigmoid mass lesion ileocecal polyp diverticulosis Plan: High fiber diet leaflet Avoid straining at stool, epsom salts and sitz bath, anusol supps or cream await bx, if pos for neoplasia then refer colorectal, if neg then can consider endoscopic removal --the lesion was pretty soft Repeat Colonoscopy in 1 year or earlier if clinically indicated Above findings were reviewed with the patient and relevant handouts were provided if indicated.
[2022-10-23 11:09] VITALS: BP 109/64; PULSE 60; RESP 16; TEMP 36.1; O2SAT 95
[2022-10-23 11:24] VITALS: BP 155/78; PULSE 59; RESP 16; TEMP 37.2; O2SAT 98
== END 2022-10-23 12:50 ==
PROVIDERS: PCP General Practice; Visit Provider Internal Medicine Gastroenterology
PROC: 0DJD8ZZ Inspection of Lower Intestinal Tract, Via Natural or Artificial Opening Endoscopic (ICD-10-PCS; CPT 45378; principal; 2022-10-23 10:30)
DX: R19.5 Other fecal abnormalities (principal); K63.5 Polyp of colon; K63.89 Other specified diseases of intestine; D37.4 Neoplasm of uncertain behavior of colon; K57.30 Diverticulosis of large intestine without perforation or abscess without bleeding; K64.0 First degree hemorrhoids; I25.10 Atherosclerotic heart disease of native coronary artery without angina pectoris; I11.9 Hypertensive heart disease without heart failure; E78.5 Hyperlipidemia, unspecified; E03.9 Hypothyroidism, unspecified; Z79.82 Long term (current) use of aspirin; Z79.899 Other long term (current) drug therapy; Z91.010 Allergy to peanuts
CPT/HCPCS: 45385; 45380; 45381; 88305

== ENCOUNTER 2022-11-01 12:20 | Outpatient (REF) | payer MEDICARE, MEDICAID, SELFPAY ==
[2022-11-01 13:20] LABS: MANUAL DIFF FLAG NO
[2022-11-01 14:03] LABS: Basophils Percent Auto 0.5 % (0-2); Eosinophils Absolute Auto 0.1 X10*3/uL (0.0-0.4); Eosinophils Percent Auto 1.8 % (0-4); Hematocrit 41.8 % (37.0-47.0); Hemoglobin 13.5 g/dl (12.0-16.0); Imm Gran Abs Auto 0.02 X10*3/uL (0.00-0.03); Imm Gran Pct Auto 0.3 % (0.0-0.4); Lymphocytes Absolute Auto 1.5 X10*3/uL (1.2-4.9); Lymphocytes Percent Auto 24.1 % (20-40); Mean Corpuscular HGB Conc 32.3 g/dl (31.0-35.0); Mean Corpuscular Hemoglobin 27.8 pg (27.0-33.0); Mean Corpuscular Volume 86.2 fL (80.0-98.0); Mean Platelet Volume 10.3 fL (9.4-12.3); Monocytes Absolute Auto 0.5 X10*3/uL (0.1-1.2); Monocytes Percent Auto 8.4 % (2-11); Neutrophils Percent Auto 64.9 % (45-73); Platelet Count 330 X10*3/uL (160-400); Red Blood Count 4.85 X10*6/uL (4.20-5.50); Red Cell Distribution Width 13.9 % (11.0-16.0); White Blood Count 6.2 X10*3/uL (4.8-10.8)
[2022-11-01 14:44] LABS: Alanine Aminotransferase 51 U/L (0-31); Albumin Level 4.2 g/dL (3.5-5.0); Alkaline Phosphatase 76 U/L (39-117); Anion Gap 11 (12-20); Aspartate Amino Transferase 42 U/L (5-31); Bilirubin Total 0.7 mg/dL (0.0-1.0); Blood Urea Nitrogen 14 mg/dL (9-16); Calcium 10.2 mg/dL (8.4-10.2); Carbon Dioxide 30 mmol/L (22-29); Chloride 103 mmol/L (96-108); Estimated Glomerular Filt Rate > 60; Glucose Random 105 mg/dL (60-115); Potassium 4.1 mmol/L (3.3-5.1); Sodium 140 mmol/L (135-145); Total Protein 6.9 g/dL (6.5-8.0)
== END 2022-11-01 12:21 | disposition home or self-care (01) ==
LOC: HO.LAB 12:20
PROVIDERS: PCP General Practice; Referring Provider General Practice; Visit Provider Internal Medicine Gastroenterology
DX: K75.81 Nonalcoholic steatohepatitis (NASH) (principal); K63.89 Other specified diseases of intestine; K63.9 Disease of intestine, unspecified
CPT/HCPCS: 36415; 80053; 82378; 85025; 99212

== ENCOUNTER 2022-11-12 05:59 | Outpatient (REF) | payer MEDICARE, MEDICAID, SELFPAY ==
--- NOTE | ~2022-11-12 | CT_ITS ---
EXAMINATION: CT ABDOMEN AND PELVIS WITH CONTRAST CLINICAL INFORMATION: Dysplastic polyps in the right colon and sigmoid colon with dysplasia. COMPARISON: Previous CT of the abdomen and pelvis, most recent January 2013. TECHNIQUE: Multidetector volumetric images were obtained from the superior aspect of the liver through the pubic symphysis following administration 85 mL of Omnipaque 350 intravenous contrast. Sagittal and coronal reformatted images were obtained on the technologist's workstation. Oral contrast: Yes This CT examination was performed using dose optimization techniques as appropriate, variously including the following: *Automated exposure control *Adjustment of mA and/or kV according to patient size (this includes techniques or standardized protocols for targeted exams where dose is matched to indication/reason for exam; i.e. extremities or head) *Use of iterative reconstruction technique DLP: 378 mGy-cm. FINDINGS: LUNG BASES: The visualized lung bases are unremarkable. LIVER, GALLBLADDER, AND BILIARY TREE: Fatty liver. No focal hepatic lesion or biliary ductal dilatation is present. The gallbladder is unremarkable with no evidence of radiopaque gallstones, gallbladder wall thickening, or obvious pericholecystic inflammatory changes. PANCREAS: Unremarkable. SPLEEN: Unremarkable. ADRENAL GLANDS: Unremarkable. KIDNEYS AND URETERS: The kidneys are normal in size, shape, and attenuation. No hydronephrosis, hydroureter, or calculi seen. No perinephric stranding. BLADDER: Not optimally distended. GASTROINTESTINAL TRACT: No definite colon mass is seen. There is question of focal wall thickening in the medial cecum for example axial image 57 series 3. Prominent fat at the ileocecal valve. Small and large bowel is otherwise normal. The appendix is unremarkable. Stomach is collapsed. ABDOMINAL WALL: Diastasis of the rectus muscles. Small ventral hernias containing fat superior to the umbilicus. Small periumbilical hernia containing small bowel. No evidence of obstruction. LYMPH NODES: Normal. VASCULAR: Atherosclerotic disease. No aneurysm. PELVIC VISCERA: Unremarkable. OSSEOUS STRUCTURES: Degenerative changes of the spine. CT/CT abdomen pelvis w IV con IMPRESSION: No definite mass. Focal wall thickening of the medial cecum. Correlation with colonoscopy results recommended. Ventral/supraumbilical hernias containing fat and small periumbilical hernia containing small bowel. No evidence of obstruction. Fatty liver. No significant abnormality. Fleischner guidelines were followed.
[2022-11-12] MEDS: iohexoL 350 MG/ML 100 ML INFUS..BTL IV (08:31)
[2022-11-12] MEDS: Barium Sulfate Oral (Berry) 450 ML ORAL.SUSP 900 ML PO (08:32)
== END 2022-11-12 06:00 | disposition home or self-care (01) ==
LOC: HO.CT 05:59
PROVIDERS: PCP General Practice; Visit Provider Internal Medicine Gastroenterology
DX: K63.89 Other specified diseases of intestine (principal)
CPT/HCPCS: 74177; Q9967

== ENCOUNTER → 2022-11-22 09:26 | Outpatient (BNVA) | payer MEDICARE, MEDICAID, SELFPAY | PROVIDERS: PCP General Practice; Visit Provider Internal Medicine Gastroenterology | DX: K63.89 Other specified diseases of intestine (principal) | CPT/HCPCS: 99212 ==

== ENCOUNTER 2022-12-02 10:54 | Day surgery (SDC) | payer MEDICARE, MEDICAID, SELFPAY ==
--- NOTE | 2022-11-29 12:59 | HO.ANESPROP2 ---
HPI - Anesthesia Eval Consult details Narrative: 71yo F for Colonoscopy with Hybrid APC s/p colo 10/23/22 with MAC PMFSH Active Problems Active Problems: All Active Problems (Updated 11/01/22 @ 12:55 by Ami Nugent MD) Mass of colon (Acute) Varicose veins of right lower extremity with inflammation (Acute) Varicose veins of both legs with edema (Acute) Hyperlipidemia (Acute) HTN (hypertension) (Acute) CAD (coronary artery disease) (Acute) Past Medical History Medical History CAD (coronary artery disease) HTN (hypertension) Hyperlipidemia Hypertensive heart disease Hypothyroid Family History Family History Father No problems noted. Mother No problems noted. Maternal Grandmother Cancer Family history of problems with anesthesia: No Surgical History Surgical History Hx of section Hx of colonoscopy History of Problems with Anesthesia: No Social History Social History Patient Tobacco Use Status: Never used Tobacco Meds Allergies Allergy/AdvReac Type Severity Reaction Status Date / Time peanut [PEANUT] Allergy Unknown HIVES/RASH Verified 12/06/22 09:10 Home Medications Medication Instructions Recorded Confirmed Last Taken Type amlodipine 5 mg tablet 5 mg PO QAM 12/06/22 Unknown History levothyroxine 100 mcg tablet 100 mcg PO QAM 12/06/22 Unknown History naproxen 500 mg tablet 500 mg PO BID PRN 12/06/22 Unknown History Exam Exam Date and Time: November 29, 2022 1259 Height,Weight and Vital Signs: Height 5 ft 2.25 in Weight 84.538 kg Narrative Narrative: EKG 06/2022 Vent. Rate : 079 BPM ? ? Atrial Rate : 079 BPM ?? P-R Int : 186 ms? QRS Dur : 094 ms ? ? QT Int : 398 ms ? ? ? P-R-T Axes : 057 018 046 degrees ?? QTc Int : 456 ms ? Normal sinus rhythm Normal ECG When compared with ECG of 15-OCT-2015 00:19, [place] interval has decreased Nonspecific T wave abnormality now evident in Lateral leads Assessment and Plan Assessment Anesthesia Assessment: Chart Reviewed Final Anesthetic Review Family History of Problems with Anesthesia: No History of Problems with Anesthesia: No
[2022-12-02 12:08] VITALS: BMI 32.0
[2022-12-02 12:23] VITALS: BP 181/79; PULSE 77; RESP 16; TEMP 36.1; O2SAT 99
[2022-12-02] MEDS: Lactated Ringers 1,000 ML 100 ML IVCONT (12:25)
--- NOTE | 2022-12-02 13:15 | HO.ANESPROP2 ---
[facility] Active Problems Active Problems: All Active Problems (Updated 11/01/22 @ 12:55 by Ami Nugent MD) Varicose veins of both legs with edema (Acute) Varicose veins of right lower extremity with inflammation (Acute) Mass of colon (Acute) Hyperlipidemia (Acute) HTN (hypertension) (Acute) CAD (coronary artery disease) (Acute) Past Medical History Medical History CAD (coronary artery disease) HTN (hypertension) Hyperlipidemia Hypertensive heart disease Hypothyroid Family History Family History Father No problems noted. Mother No problems noted. Maternal Grandmother Cancer Family history of problems with anesthesia: No Surgical History Surgical History Hx of section Hx of colonoscopy History of Problems with Anesthesia: No Social History Social History Patient Tobacco Use Status: Never used Tobacco Use of substances other than those prescribed or required for medical reasons: No Are you DNR?: No Advance Directives: No Advance Directives Information Provided: Yes Meds Allergies Allergy/AdvReac Type Severity Reaction Status Date / Time peanut [PEANUT] Allergy Unknown HIVES/RASH Verified 12/02/22 12:04 Active Medications: Current Medications Lactated Ringer's (Lr) 1,000 mls @ 100 mls/hr IVCONT .Q10H RIGO Last Admin: 12/02/22 12:25 Dose: 100 mls/hr Home Medications Medication Instructions Recorded Confirmed Last Taken Type levothyroxine 88 mcg tablet 88 mcg PO DAILY 03/30/21 12/02/22 Unknown History Exam Exam Date and Time: December 02, 2022 1315 Height,Weight and Vital Signs: Height 5 ft 2 in Weight 79.379 kg Last Vital Signs Temp 97.0 F 12/02/22 12:23 Pulse 77 12/02/22 12:23 Resp 16 12/02/22 12:23 BP 181/79 H 12/02/22 12:23 Pulse Ox 99 12/02/22 12:23 O2 Del Method Room Air 12/02/22 12:23 Airway Mallampati Class: III TM Dist: >3cm Neck ROM: Full Denture: Upper Heart: RRR Lungs: CTA Assessment and Plan Final Anesthetic Review Family History of Problems with Anesthesia: No History of Problems with Anesthesia: No ASA Class: III Final Preanesthetic Review: Meds/Allgs Chart Reviewed, Consent Obtained/Reviewed and Anes Risks/Benef Reviewed Patient Risk: Intermediate Procedure Risk: Low Anesthetic Plan Anesthetic Plan: MAC: Disposition: Standard PACU
--- NOTE | 2022-12-02 13:18 | MHC.SHP ---
Pre-Procedural Eval Section A Date of Service: 12/02/22 The History & Physical has been completed within 30 days and I have reviewed it.: Yes Section B Chief Complaint: Other specified diseases of intestine Allergies: Allergies Allergy/AdvReac Type Severity Reaction Status Date / Time peanut [PEANUT] Allergy Unknown HIVES/RASH Verified 12/02/22 12:04 Plan Diagnosis/Plan: Unchanged I have reviewed the history and physical and performed a pertinent physical examination on my patient. No changes have occurred unless specified. colonoscopy for polyp removal and reassessment Time Spent With Patient Time: Total time managing care of this patient today ____ minutes.
--- NOTE | 2022-12-02 13:21 | W.PM.OPN ---
Operative Note Operative Note Date of Service: 12/02/22 Narrative: Operative Information Procedure Description: Colonoscopy Indication: hx of colon polyps Anesthesia: MAC COLONOSCOPY Instrument: Olympus variable stiffness pediatric scope 190L Colonoscopy Monitoring: Vital signs and clinical assessment, continuous EKG monitoring, Pulse oximetry, Carbon Dioxide monitoring and blood pressure monitoring were done throughout the procedure. Colon withdrawal time was 40 minutes. Procedure: The patient was placed in the left lateral decubitis position and pre-procedure medications were administered. After a digital rectal examination of the ano-rectum, the video colonoscope was inserted into the rectum and advanced through the colon to the cecum/TI. The colonoscope was slowly withdrawn in a retrograde panoramic fashion and the colon mucosa was carefully examined including a retroflexed view of the rectum. Findings and interventions are described below. Procedure Difficulty: moderate Findings: Terminal Ileum-normal Cecum:normal Ascending Colon:? few diverticula seen, over the ileocecal valve there was a polypoid area noted 8-10 mm, removed with cold snare Transverse Colon -normal Descending Colon:normal Sigmoid Colon: moderate diverticulosis, at 30 cm from anal verge the previously noted semi pedunculated lesion was noted, measuring about [id number]. It was injected with 1 ml of epinephrine and then it was lifted easily with ERBE jet and then removed piece meal using combination of hot snare and cold snare techniques as well cold forceps for the edges. The area was then ablated using APC at 20 W. Some pieces retrieved with net. Rectum: Retroflexion with small internal hemorrhoids, grade I Anorectum - normal Colon preparation: Seymour Bowel Preparation Scale Right colon; 2 Transverse colon: 2 Left colon; 2 (0 = Unprepared colon segment with mucosa not seen due to solid stool that cannot be cleared. 1 = Portion of mucosa of the colon segment seen, but other areas of the colon segment not well seen due to staining, residual stool and/or opaque liquid. 2 = Minor amount of residual staining, small fragments of stool and/or opaque liquid, but mucosa of colon segment seen well. 3 = Entire mucosa of colon segment seen well with no residual staining, small fragments of stool or opaque liquid) Impression and Post Procedure Diagnosis: polyps diverticulosis Plan: High fiber diet leaflet Avoid straining at stool, epsom salts and sitz bath, anusol supps or cream Repeat Colonoscopy in 3 months if no neoplasia in the resected tissue, next time use adult scope. Above findings were reviewed with the patient and relevant handouts were provided if indicated.
[2022-12-02 14:36] VITALS: BP 136/68; PULSE 77; RESP 16; TEMP 36.5; O2SAT 99
--- NOTE | 2022-12-02 14:38 | HO.POSTANES ---
Post Anesthesia Evaluation Post Anesthesia Evaluation Date of Service: 12/02/22 Vital Signs: Vital Signs Temp Pulse Resp BP Pulse Ox O2 Del Method 12/02/22 12:23 97.0 F 77 16 181/79 H 99 Room Air Anesthesia: Monitored Mental Status: Awake Pain Control: Satisfactory Nausea/Vomiting: None Hydration: Adequate Anesthesia-Related Issues: No Anes. Related Issues
[2022-12-02 14:51] VITALS: BP 166/83; PULSE 67; RESP 16; TEMP 36.3; O2SAT 99
== END 2022-12-02 15:18 | disposition home or self-care (01) ==
PROVIDERS: PCP General Practice; Visit Provider Internal Medicine Gastroenterology
PROC: (CPT 45385; principal; 2022-12-02 12:50)
DX: K63.89 Other specified diseases of intestine (principal); Z86.010 Personal history of colon polyps; K57.30 Diverticulosis of large intestine without perforation or abscess without bleeding; K64.0 First degree hemorrhoids; I25.10 Atherosclerotic heart disease of native coronary artery without angina pectoris; I11.9 Hypertensive heart disease without heart failure; E78.5 Hyperlipidemia, unspecified; E03.9 Hypothyroidism, unspecified; Z79.899 Other long term (current) drug therapy; Z91.010 Allergy to peanuts
CPT/HCPCS: 45385; 45380; 45381; 88305; 88341; 88342; C2618; Q9968

== ENCOUNTER → 2022-12-06 09:09 | Outpatient (BNVA) | payer MEDICARE, MEDICAID, SELFPAY | PROVIDERS: PCP General Practice; Visit Provider Internal Medicine Gastroenterology | DX: K63.89 Other specified diseases of intestine (principal); C18.9 Malignant neoplasm of colon, unspecified | CPT/HCPCS: 99212 ==

== ENCOUNTER → 2022-12-18 13:39 | Outpatient (BNVA) | payer MEDICARE, MEDICAID, SELFPAY | PROVIDERS: PCP General Practice; Referring Provider Internal Medicine Gastroenterology; Visit Provider Surgery | DX: C18.9 Malignant neoplasm of colon, unspecified (principal) | CPT/HCPCS: 99202 ==

== ENCOUNTER 2023-01-13 10:40 | Outpatient (AMB) | payer MEDICARE, MEDICAID, SELFPAY ==
[2023-01-13 10:47] VITALS: BP 144/80; PULSE 55; BMI 32.7
--- NOTE | 2023-01-13 10:47 | MHC.OFFVIS ---
Intake Vital Signs 01/13/23 10:47 Height 5 ft 2 in Weight 178 lb 9.191 oz BMI 32.7 BP 144/80 H Blood Pressure Location Lt brachial Position Sitting Pulse 55 Intake Visit Reasons: 1 year follow up Intake Note: 1 year follow-up with ekg and pre-op clearance Corporate Quality Engineer Required: Yes Corporate Quality Engineer Name: daughter Welder Gas: Welder [employer] Present Accompanied by: Daughter Allergies peanut [PEANUT] Allergy (Unknown, Verified 12/18/22 13:47) HIVES/RASH Medication List - Last Reconciled 01/13/23 by Hany Day MD aspirin 81 mg PO DAILY 90 days isosorbide mononitrate ER 60 mg PO DAILY 90 days levothyroxine 100 mcg PO QAM losartan-hydrochlorothiazide 100-25 mg 1 tab PO DAILY 90 days metoprolol succinate ER 25 mg PO DAILY naproxen 500 mg PO BID PRN rosuvastatin 40 mg PO DAILY HPI HPI Comments History of Present Illness Details Rica comes for follow-up. She is accompanied by her daughter. Did declined a certified hospital superintendent. 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 Has been seen by General surgery but surgical decision has been complicated as patient is Jevoah's witness and concern about requirement for blood transfusion if so required. Patient completely declines to use blood products given her danny. Patient and family is seeking 2nd opinion. Patient currently has no cardiac symptoms. However she has elevated blood pressure as per the daughter. She currently is not taking amlodipine as she thinks this is giving her side effect of body pains. She also is not always compliant with all medications although bernardo takes her isosorbide as well as metoprolol religiously. No recent blood pressure records at home. She is taking aspirin as well as statin therapy. She denies any anginal symptoms. [facility] Medical History CAD (coronary artery disease) Colon adenocarcinoma HTN (hypertension) Hyperlipidemia Hypertensive heart disease Hypothyroid Surgical History Hx of section Hx of colonoscopy Family History Father No problems noted. Mother No problems noted. Maternal Grandmother Cancer Social History Patient Tobacco Use Status: Never used Tobacco Review of Systems Const Denies chills, Denies fatigue, Denies fever(s), Denies frequent falls, Denies weakness, Denies weight gain and Denies weight loss ENT Denies dizziness Card Denies chest pain, Denies leg edema, Denies lightheadedness, Denies palpitations, Denies dyspnea, Denies dyspnea on exertion, Denies orthopnea and Denies other (loss of consciousness) Resp Denies cough, Denies dyspnea and Denies dyspnea on exertion GI Denies hematochezia and Denies change in stool character Musc Denies abnormal gait, Denies muscle weakness, Denies numbness, Denies radiating pain into limb and Denies tingling Neuro Denies abnormal gait, Denies dizziness, Denies frequent falls, Denies numbness, Denies tingling and Denies weakness Endo Denies fatigue and Denies palpitations Physical Exam Vital Signs: Last Vital Signs Pulse 55 01/13/23 10:47 BP 144/80 H 01/13/23 10:47 BMI result Body Mass Index 32.7 Const General: cooperative, comfortable, no acute distress, alert and awake Nutritional Appearance: overweight Orientation/consciousness: patient oriented x3 Limitations: no limitations Neck Neck: Yes trachea midline, Yes supple and Yes no JVD Carotids: no bruits Resp Effort & Inspection: normal respiratory effort Auscultation: clear to auscultation bilaterally Cardio Jugular venous distension: no JVD Palpation: normal PMI Rate: regular rate Rhythm: regular rhythm Heart sounds: S1 normal heart sound present, S2 normal heart sound present, no click, no gallops, no murmurs and no rubs GI Auscultation: normal bowel sounds Skin General skin exam: no rashes or lesions noted Neuro General: patient oriented x3 and no focal motor deficits Extrem General: Yes no clubbing, cyanosis or edema, Yes venous stasis dermatitis and Yes other (Bilateral significant varicose veins, right greater than left) Psych Appearance: grossly normal Office Procedures EKG Details: EKG shows sinus bradycardia 55 beats per minute otherwise normal EKG [id number], Complete Assessment & Plan Assessment & Plan (1) Preoperative cardiovascular examination: Code(s): Z01.810 - Encounter for preprocedural cardiovascular examination Plan: Preoperative cardiovascular risk stratification prior to abdominal surgery for colon resection for cancer. This intermediate risk surgery. She does have prior CAD and now with limited exercise activity. Need to rule out significant myocardial ischemia as preoperative risk stratification prior to surgery. Will suggest a exercise myocardial perfusion imaging on full medical therapy to assess if medical therapy is adequate to control or ischemia. Also obtain echocardiogram to assess for LV systolic and diastolic function. If the stress test is within normal limits at more than 4 Mets of physical capacity, she would be optimized to undergo surgery with low to intermediate risk for perioperative cardiovascular morbidity mortality. However risk is elevated as she is refusing blood products given her danny if so required which could increase the risk for cardiovascular complication (2) CAD (coronary artery disease): Comment: Acute coronary syndrome with NSTEMI in 2007 with distal LAD 80% and ostial RPDA 90%, non intervenable Code(s): I25.10 - Atherosclerotic heart disease of [place] coronary artery without angina pectoris Plan: CAD with distal LAD and RPDA disease being managed medically. She has no symptoms of angina on dual antianginal therapy. Importance of medical therapy was discussed. Low-dose aspirin therapy to continue. Continue high-intensity statin therapy with target goal LDL less than 70 mg/dL. Better control blood pressure is indicated. See below. (3) HTN (hypertension): Code(s): I10 - Essential (primary) hypertension Qualifiers: Hypertension type: primary hypertension Qualified Code(s): I10 - Essential (primary) hypertension Plan: Hypertension which seems uncontrolled. However there is a lot of inconsistency and noncompliance by patient in taking medications. She self medicates himself on some days and not others. In consistency with medication taking as well as dangers of this was discussed with patient's detail. Advised to take all medical therapy as prescribed and then measure blood pressure and maintain a record at multiple times during the day. Will further titrate her medications based on her recordings at home. Will follow up in the clinic in 1 year's time, sooner p.r.n.. Thank you for allowing me to partake in her care Coding Level of Care Code Est Pt Level 4 (43662) Diagnoses Preoperative cardiovascular examination Z01.810 CAD (coronary artery disease) I25.10 HTN (hypertension) I10 Hypertension type: primary hypertension CPT Codes EKG - CPT: 70526-[id number], Complete ([id number])
== END 2023-01-13 11:30 | disposition home or self-care (01) ==
PROVIDERS: Visit Provider Internal Medicine Cardiovascular Disease
DX: I25.10 Atherosclerotic heart disease of native coronary artery without angina pectoris (principal); I10 Essential (primary) hypertension; Z01.810 Encounter for preprocedural cardiovascular examination; R00.1 Bradycardia, unspecified
CPT/HCPCS: 93010; 99214

== ENCOUNTER → 2023-01-13 10:40 | Outpatient (BNVA) | payer MEDICARE, MEDICAID, SELFPAY | PROVIDERS: Visit Provider Internal Medicine Cardiovascular Disease | DX: Z01.810 Encounter for preprocedural cardiovascular examination (principal); I25.10 Atherosclerotic heart disease of native coronary artery without angina pectoris; I10 Essential (primary) hypertension | CPT/HCPCS: 93005; 99212 ==

== ENCOUNTER 2023-02-04 13:38 | Outpatient (REF) | payer MEDICARE, MEDICAID, SELFPAY ==
--- NOTE | ~2023-02-04 | MM_ITS ---
EXAMINATION: MM SCREENING DIGITAL BREAST TOMOSYNTHESIS, BILATERAL CLINICAL INFORMATION: Screening. Asymptomatic. COMPARISON: Mammography: This study is compared with prior exams dating back to 2016. TECHNIQUE: Digital breast tomosynthesis is performed in both the craniocaudal and mediolateral oblique views along with computer-aided detection (CAD). Synthesized 2D images are generated from the tomosynthesis. FINDINGS: There are scattered areas of fibroglandular density (ACR BI-RADS breast composition Category b). There are no significant masses, abnormal calcifications, or other abnormalities. MM/MM tomosynthesis screening BI IMPRESSION: No mammographic evidence of malignancy. ASSESSMENT: BI-RADS BI-RADS 1 - Negative RECOMMENDATION: Routine annual mammography screening. 1 year F/U This examination should not preclude the clinical evaluation of a suspicious palpable abnormality. This patient's information was entered into a reminder system with a target due date for their next mammogram.
== END 2023-02-04 13:39 | disposition home or self-care (01) ==
LOC: HO.MAMMO 13:38
PROVIDERS: PCP General Practice; Visit Provider General Practice
DX: Z12.31 Encounter for screening mammogram for malignant neoplasm of breast (principal)
CPT/HCPCS: 77063; 77067

== ENCOUNTER → 2023-02-04 13:45 | Outpatient (BNV) | payer MEDICARE, MEDICAID, SELFPAY | PROVIDERS: PCP General Practice; Visit Provider Radiology Diagnostic Radiology | DX: Z12.31 Encounter for screening mammogram for malignant neoplasm of breast (principal) | CPT/HCPCS: 77063; 77067 ==

== ENCOUNTER → 2023-02-10 13:48 | Outpatient (REF) | payer MEDICARE, MEDICAID, SELFPAY ==
--- NOTE | 2023-02-10 13:50 | CA_ITS ---
Transthoracic Echocardiogram Patient (Last, First, Middle): Rica Grider, Gender: Female Date of : 1950 Age: 72 Procedure Date: 02/10/2023 Procedure Type: Transthoracic Echocardiogram Location: OP Height: 154.94 cm Weight: 79.83 kg BSA: 1.79 m2 Heart Rate: 71 bpm BP: 144 / 80 mmHg Electron Beam Welder: SONYA Referring MD: Hany Day MD Symptoms: Z01.810 - Encounter for preprocedural cardiovascular examination Study Quality: Fair ECG Rhythm: Frequent ventricular premature beats Conclusions: - The left ventricular systolic function is normal. The calculated ejection fraction is 58% by biplane method. - There is moderate septal asymmetric hypertrophy. - No obvious valvular pathology seen on this study. Findings Procedure Information Contrast agent, definity, is being given per protocol without apparent complications. Left Ventricle Normal left ventricular cavity size. The left ventricular systolic function is normal. The calculated ejection fraction is 58% by biplane method. There is no evidence of regional wall motion abnormalities. Evidence suggests grade I (mild) diastolic dysfunction. There is moderate septal asymmetric hypertrophy. Right Ventricle Normal right ventricular cavity size and systolic function. Atria Both atria are normal in size. Aortic Valve The aortic valve was not well visualized. There is no aortic valve stenosis. There is no aortic valve regurgitation. Mitral Valve The mitral valve appears normal. There is trace mitral valve regurgitation. There is no mitral valve stenosis. Pulmonic Valve The pulmonic valve is likely normal. Tricuspid Valve There is mild tricuspid valve regurgitation. There is no evidence of pulmonary hypertension. Great Vessels The asc aorta is normal in size. Venous The inferior vena cava is normal in size and collapses less than 50% with inspiration. Pericardium/Pleural There is no evidence of pericardial effusion. Prior Study Comparison No significant change compared to prior study dated: 04/01/2019. Recommendations, Care & Conclusions No obvious valvular pathology seen on this study. Measurements 2D Linear Measurements IVSd: 1.31 0.6-0.9/0.6-1.0 cm LVIDd: 4.62 3.9-5.3/4.2-5.9 cm LVIDd Index: 2.58 2.4-3.2/2.2-3.1 cm/m2 LVIDs: 3.40 2.0-3.6 cm LVPWd: 0.79 0.7-1.1 cm LA Diam: 3.50 2.7-3.8/3.0-4.0 cm LAIDs Index: 1.96 1.5-2.3 cm/m2 LV Mass: 212.48 67-162/88-224 g LV Mass Index: 118.71 43-95/49-115 g/m2 LVOT Diam: 2.20 3.0+(-)1.3 cm 2D Systolic Function EF 4C: 56.40 >55% EF 2C: 59.40 >55% EF BiP: 58.00 >55% Mitral Valve MV Pk E: 0.74 MV PK A: 0.56 MV Decel Time: 191.00 E/A: 1.30 E'Lateral: 7.62 E'Medial: 5.33 E/E' Med: 13.90 E/E' Lat: 9.70 PHT: 56.00 MVA PHT: 3.93 Decel Rock: 3.88 Aortic Valve AoV Pk Slade: 1.37 AoV Pk Grad: 8.00 MENDEZ: 2.83 LVOT LVOT Pk Slade: 0.96 LVOT Mn Slade: 0.59 LVOT VTI: 0.21 LVOT Pk Grad: 4.00 LVOT Mn Grad: 2.00 LVOT Diam: 2.20 LVOT Area: 3.80 Diastolic Function MV Pk E: 0.74 MV Pk A: 0.56 E/A: 1.30 E'Medial: 5.33 E/E' Med: 13.90 E' Laterial: 7.62 E/E' Lat: 9.70 Right Ventricle TAPSE (mm): 22.10 TVS' Slade: 11.40 Tricuspid Valve TR Pk Slade: 2.73 TR Pk Grad: 30.00 RA Press: 8.00 RVSP: 38.00 Great Vessels Aorta Sinus of Valsalva: 3.10 2.0-3.5 cm Ao Asc: 3.40 2.1-3.4 cm Pulmonary Veins Pulm Vein S/D 1.20 Pulmonary Valve PV Pk Slade: 0.99 Peak PV Grad: 4.00 Updated in Other Vendor System with Status of Final Willie Marrufo MD electronically signed on 02/11/2023 12:21:25 PM with status of Final
== END ==
LOC: HO.CARD 13:48
PROVIDERS: Visit Provider Internal Medicine Cardiovascular Disease
DX: Z01.810 Encounter for preprocedural cardiovascular examination (principal)
CPT/HCPCS: 93306; Q9957

== ENCOUNTER → 2023-02-10 13:50 | Outpatient (BNV) | payer MEDICARE, MEDICAID, SELFPAY | PROVIDERS: Visit Provider Internal Medicine | DX: I51.7 Cardiomegaly (principal) | CPT/HCPCS: 93306 ==

== ENCOUNTER → 2023-02-11 09:21 | Outpatient (REF) | payer MEDICARE, MEDICAID, SELFPAY ==
--- NOTE | ~2023-02-11 | NM_ITS ---
EXERCISE MYOCARDIAL PERFUSION STUDY INDICATION: Preoperative cardiac evaluation, assess for ischemia TECHNIQUE: The patient was brought in for an exercise perfusion study on 02/11/2023. Patient performed exercise as per Omar protocol and was injected 25 mCi of sestamibi once target heart rate was achieved. Images were obtained using the SPECT gamma camera interlaced with the gating device. Images were obtained in supine position. Resting perfusion study was performed on 02/18/2023. Patient was administered 25 mCi of sestamibi intravenously at rest. Images were then obtained in supine position. Images were processed with the software and compared side to side in short axis, horizontal long axis and vertical long axis views. Total DLP 111mGy-cm. FINDINGS: Raw images were reviewed. The stress perfusion study showed diminished tracer uptake along the lateral wall, more prominent towards the apical part of lateral wall. There is improvement with CT attenuation correction suggestive of soft tissue attenuation artifact. The gated study shows normal LV systolic function with calculated LVEF of 63%. LV cavity is normal in size. The gated study shows normal wall thickening and contraction of segments. Resting study shows no significant perfusion defects. Gating at rest reveals normal wall motion with ejection fraction at 67%. The findings are consistent with reversible lateral defect, but improving with CT attenuation correction and hence suggestive of soft tissue attenuation artifact. NM/NM cardiolite stress test IMPRESSION: 1. Myocardial perfusion imaging study shows reversible lateral defect, but improving with CT attenuation correction and hence rather suggestive of soft tissue attenuation artifact. Less likely to be circumflex territory ischemia. 2. Gated LVEF is 63% during stress and 67% during rest. 3. Transient ischemic dilatation not present. EKG component of the test reported separately.
--- NOTE | 2023-02-11 09:23 | CA_ITS ---
Acquisition Time: 2023-02-11 09:54:19 Total Exercise Time: 00:04:00 Test Indications: CAD Medications: ASA ISOSORBIDE LEVITHYROXINE LOSARTAN/HCTZ METOPROLOL NAPROXEN ROSUVASTATIN Protocol: [place] Max HR: 210 BPM 140% of Pred: 149 BPM Max BP: 170/090 mmHG Max Work Load: 5.3 METS Exercise stress test exercise 4 min achieving 5.3 Mets and 96% MPHR, with request to stop due to fatigue, without anginal symptoms, with isolated PACs and PVCs and Ventricular Bigeminy, with normotensive response to exercise, without EKG changes. Nuclear images pending. Test reviewed Dr Olson. Referred By: Hany Day Overread By: VIK ROA
== END ==
LOC: HO.CARD 09:21
PROVIDERS: Visit Provider Internal Medicine Cardiovascular Disease
DX: Z01.810 Encounter for preprocedural cardiovascular examination (principal); R07.9 Chest pain, unspecified
CPT/HCPCS: 78452; 93017; A9500

== ENCOUNTER → 2023-02-11 09:23 | Outpatient (BNV) | payer MEDICARE, MEDICAID, SELFPAY | PROVIDERS: Visit Provider Internal Medicine | DX: R07.9 Chest pain, unspecified (principal); Z01.810 Encounter for preprocedural cardiovascular examination | CPT/HCPCS: 78452; 93016; 93018 ==

== ENCOUNTER 2024-01-15 10:31 | Outpatient (AMB) | payer MEDICARE, MEDICAID, SELFPAY ==
--- NOTE | 2024-01-15 10:40 | A.OFFVIS_ITS ---
Vital Signs 01/15/24 10:41 Height 5 ft 2 in Weight 180 lb 12.465 oz BMI 33.1 BP 124/80 Blood Pressure Location Lt brachial Position Sitting Pulse 55 Intake Visit Reasons: 1 YEAR FOLLOW UP AFTER TESTING Intake Note: 1 year follow-up with ekg feeling ok Student Truck Driver Required: Yes Student Truck Driver Services: Student Truck Driver Present Student Truck Driver Name: Magalie hill Allergies peanut [PEANUT] Allergy (Unknown, Verified 12/18/22 13:47) HIVES/RASH Medication List - Last Reconciled 01/15/24 by Hany Day MD aspirin 81 mg PO DAILY 90 days isosorbide mononitrate ER 60 mg PO DAILY 90 days levothyroxine 100 mcg PO QAM losartan-hydrochlorothiazide 100-25 mg 1 tab PO DAILY 90 days metoprolol succinate ER 25 mg PO DAILY naproxen 500 mg PO BID PRN rosuvastatin 40 mg PO DAILY HPI Comments Details: Rica comes for follow-up. She underwent GI surgery for removal of colonic polyps/miles. She did well. She has not had any cardiac symptoms. Taking all her medications. No recent lipid panel. Takes all her medications. Denies any exertional chest pain or shortness of breath. Denies any heart failure symptoms. Denies any prolonged palpitations irregular heartbeat. [facility] Medical History Colon adenocarcinoma Hypothyroid Hyperlipidemia Hypertensive heart disease HTN (hypertension) CAD (coronary artery disease) Surgical History Hx of section Hx of colonoscopy Family History Father No problems noted. Mother No problems noted. Maternal Grandmother Cancer Social History Patient Tobacco Use Status: Never used Tobacco Review of Systems Const Denies chills, Denies fatigue, Denies fever(s), Denies frequent falls, Denies weakness, Denies weight gain and Denies weight loss ENT Denies dizziness Card Denies chest pain, Denies leg edema, Denies lightheadedness, Denies palpitations, Denies dyspnea, Denies dyspnea on exertion, Denies orthopnea and Denies other (loss of consciousness) Resp Denies cough, Denies dyspnea and Denies dyspnea on exertion GI Denies hematochezia and Denies change in stool character Musc Denies abnormal gait, Denies muscle weakness, Denies numbness, Denies radiating pain into limb and Denies tingling Neuro Denies abnormal gait, Denies dizziness, Denies frequent falls, Denies numbness, Denies tingling and Denies weakness Endo Denies fatigue and Denies palpitations Physical Exam Vital Signs: Last Vital Signs Pulse 55 01/15/24 10:41 BP 124/80 01/15/24 10:41 BMI result Body Mass Index 33.1 Const General: cooperative, comfortable, no acute distress, alert and awake Nutritional Appearance: overweight Orientation/consciousness: patient oriented x3 Limitations: no limitations Neck Neck: Yes trachea midline, Yes supple and Yes no JVD Carotids: no bruits Resp Effort & Inspection: normal respiratory effort Auscultation: clear to auscultation bilaterally Cardio Jugular venous distension: no JVD Palpation: normal PMI Rate: regular rate Rhythm: regular rhythm Heart sounds: S1 normal heart sound present, S2 normal heart sound present, no click, no gallops, Murmur heart sound present systolic early and no rubs GI Auscultation: normal bowel sounds Skin General skin exam: no rashes or lesions noted Neuro General: patient oriented x3 and no focal motor deficits Extrem General: Yes no clubbing, cyanosis or edema, Yes venous stasis dermatitis and Yes other (Bilateral significant varicose veins, right greater than left) Psych Appearance: grossly normal Office Procedures EKG Details: EKG shows sinus bradycardia at 55 beats per minute normal EKG [id number], Complete Assessment & Plan Assessment & Plan (1) CAD (coronary artery disease): Comment: Acute coronary syndrome with NSTEMI in 2007 with distal LAD 80% and ostial RPDA 90%, non intervenable Code(s): I25.10 - Atherosclerotic heart disease of [place] coronary artery without angina pectoris Category: Medical Plan: Coronary artery disease with distal LAD as well as severe PDA stenosis but not amenable to PCI therapy. As she has had no anginal symptoms on dual antianginal therapy. Continue the same. Importance of medical therapy was discussed. Continue low-dose aspirin therapy for life. Continue high-intensity statin therapy. Needs annual lipid panel. Advised lipid panel near future. Target goal LDL closer to 60 mg/dL. No further workup is indicated at this point time. (2) HTN (hypertension): Code(s): I10 - Essential (primary) hypertension Category: Medical Qualifiers: Hypertension type: primary hypertension Qualified Code(s): I10 - Essential (primary) hypertension Plan: Hypertension which is currently well optimized on medications. Patient says she has been more compliant with the medications. Importance of this was discussed again. Advised to monitor blood pressure at home maintain a log. Goal blood pressure less than 130/84. Low-salt diet was discussed. Will follow up in the clinic in 1 year's time, sooner p.r.n.. Thank you for allowing me to partake in her care Orders: Orders Lipid Panel Today I25.10 - Atherosclerotic heart disease of [place] coronary artery without angina pectoris Coding Level of Care Code Est Pt Level 4 (40661) Diagnoses CAD (coronary artery disease) I25.10 HTN (hypertension) I10 Hypertension type: primary hypertension CPT Codes EKG - CPT: 22575-[id number], Complete ([id number])
[2024-01-15 10:41] VITALS: BP 124/80; PULSE 55; BMI 33.1
== END 2024-01-15 11:01 | disposition home or self-care (01) ==
PROVIDERS: PCP General Practice; Visit Provider Internal Medicine Cardiovascular Disease
DX: I25.10 Atherosclerotic heart disease of native coronary artery without angina pectoris (principal); I10 Essential (primary) hypertension
CPT/HCPCS: 93010; 99214

== ENCOUNTER → 2024-01-15 10:31 | Outpatient (BNVA) | payer MEDICARE, MEDICAID, SELFPAY | PROVIDERS: PCP General Practice; Visit Provider Internal Medicine Cardiovascular Disease | DX: I25.10 Atherosclerotic heart disease of native coronary artery without angina pectoris (principal); I10 Essential (primary) hypertension | CPT/HCPCS: 93005; 99212 ==

== ENCOUNTER 2025-01-05 08:21 | Outpatient (REF) | payer MEDICARE, MEDICAID, SELFPAY ==
--- OUTSIDE RECORDS SUMMARY | 2025-01-05 08:33 | XMS_ITS | Encounter Summary ---
Author Organization [employer] Address [address] [place] [address] [address] [place] [address] Care Team Providers Care Lead Javascript Engineer Name Role Phone Johanne Wheat MD Primary Care Provider [phone] Encounter Details Date Type Department Care Team ([facility] st Contact Info) Description 09/04/2022 Orders Only [facility] MEDICINE [address] [place], [place] [phone] Johanne Wheat MD [address] [place], [place] [phone] Social History Tobacco Use Types Packs/Day Years Used Date Smoking Tobacco: Never Smokeless Tobacco: Never Alcohol Use Standard Drinks/Week Comments Never 0 (1 standard drink = 0.6 oz pur e alcohol) Depression Answer Date Recorded Patient Health Questionnaire-2 Score 0 08/30/2022 Comments Unknown Sex and Gender Information Value Date Recorded Sex Assigned at Female 04/15/2022 10:14 AM EDT Legal Sex Female 10:14 AM EDT Gender Identity Female 04/15/2022 10:14 AM EDT Sexual Orientation Choose not to disclose 2021 10:14 AM EDT COVID-19 Exposure Response Date Recorded In the last 10 days, have yo u been in contact with someone who was confirmed or suspected to have Coronavirus/COVID-19? No / Unsure 08/30/2022 1:13 PM EDT documented as of this encounter Plan of Treatment Not on file documented as of this encounter Visit Diagnoses Not on filedocumented in this encounter Care Teams Lead Javascript Engineer Relationship Specialty Start Date End Date Johanne Wheat MD [address] [place] [id number] PCP - General Family Medicine 02/05/22 documented as of this encounter
[2025-01-05 11:12] LABS: MANUAL DIFF FLAG NO
[2025-01-05 11:17] LABS: Hematocrit 42.8 % (37.0-47.0); Hemoglobin 14.1 g/dl (12.0-16.0); Imm Gran Abs Auto 0.02 X10*3/uL (0.00-0.03); Imm Gran Pct Auto 0.3 % (0.0-0.4); Lymphocytes Absolute Auto 1.7 X10*3/uL (1.2-4.9); Mean Corpuscular HGB Conc 32.9 g/dl (31.0-35.0); Mean Corpuscular Hemoglobin 30.1 pg (27.0-33.0); Mean Corpuscular Volume 91.3 fL (80.0-98.0); NRBC Abs Auto 0.000 X10*3/uL (0.0-0.012); NRBC Pct Auto 0.0 /100WBC (0.0-0.2); Platelet Count 261 X10*3/uL (160-400); Red Blood Count 4.69 X10*6/uL (4.20-5.50); White Blood Count 5.9 X10*3/uL (4.8-10.8)
[2025-01-05 11:42] LABS: Alanine Aminotransferase 129 U/L (0-31); Albumin Level 3.9 g/dL (3.5-5.0); Alkaline Phosphatase 83 U/L (39-117); Anion Gap 10 (12-20); Aspartate Amino Transferase 119 U/L (5-31); Blood Urea Nitrogen 9 mg/dL (9-16); Calcium 9.4 mg/dL (8.4-10.2); Carbon Dioxide 28 mmol/L (22-29); Chloride 108 mmol/L (96-108); Cholesterol 236 mg/dL (<200); Estimated Glomerular Filt Rate > 60; HDL Cholesterol 50 mg/dL (>40); Potassium 3.6 mmol/L (3.3-5.1); Sodium 142 mmol/L (135-145); Total Protein 7.1 g/dL (6.5-8.0); Triglycerides 158 mg/dL (<150)
[2025-01-05 12:41] LABS: Free T4 (Free Thyroxine) 1.01 ng/dL (0.71-1.85)
== END 2025-01-05 08:22 | disposition home or self-care (01) ==
LOC: HO.HHCL 08:21
PROVIDERS: PCP General Practice; Visit Provider General Practice
DX: I10 Essential (primary) hypertension (principal); I25.10 Atherosclerotic heart disease of native coronary artery without angina pectoris
CPT/HCPCS: 36415; 80053; 80061; 82533; 84439; 84443; 85025

== ENCOUNTER 2025-01-17 09:38 | Outpatient (AMB) | payer MEDICARE, MEDICAID, SELFPAY ==
--- NOTE | 2025-01-17 09:42 | A.OFFVIS_ITS ---
Vital Signs 01/17/25 09:43 Height 5 ft 2 in Weight 182 lb 15.739 oz BMI 33.5 BP 132/70 Blood Pressure Location Lt brachial Position Sitting Pulse 64 Intake Visit Reasons: 1 yr follow up Intake Note: 1 year follow-up with ekg Cover Operator Required: Yes Cover Operator Services: Cover Operator Offered & Declined New Car Salesperson: New Car Salesperson Present Accompanied by: Daughter Allergies peanut (PEANUT) Allergy (Unknown, Verified 12/18/22 13:47) HIVES/RASH Medication List - Last Reconciled 01/17/25 by Hany Day MD aspirin 81 mg PO DAILY 90 days isosorbide mononitrate ER 60 mg PO DAILY 90 days levothyroxine 100 mcg PO QAM losartan-hydrochlorothiazide 100-25 mg 1 tab PO DAILY metoprolol succinate ER 25 mg PO DAILY naproxen 500 mg PO BID PRN rosuvastatin 40 mg PO DAILY HPI Comments Details: Rica comes for follow-up, accompanied by her daughter. He has not been most compliant with all her medications. Her recent LDL had jumped up to 155 mg/dL. She says that she has not been taking rosuvastatin regularly. She also has not been taking her losartan hydrochlorothiazide regularly as she thinks hydrochlorothiazide as given her side effects. However when she takes it her blood pressure has been well controlled including today. She also had a blood pressure check it your office recently which was within normal limits. She says she exercises regularly. She exercise for 15 minutes on a video based exercise routine and feels well and has no exertional symptoms of chest pain or shortness of breath. She denies any orthopnea, PND, leg edema. [facility] Medical History Colon adenocarcinoma Hypothyroid Hyperlipidemia Hypertensive heart disease HTN (hypertension) CAD (coronary artery disease) Surgical History Hx of section Hx of colonoscopy Family History Father No problems noted. Mother No problems noted. Maternal Grandmother Cancer Social History Patient Tobacco Use Status: Never used Tobacco Review of Systems Const Denies chills, Denies fatigue, Denies fever(s), Denies frequent falls, Denies weakness, Denies weight gain and Denies weight loss ENT Denies dizziness Card Denies chest pain, Denies leg edema, Denies lightheadedness, Denies palpitations, Denies dyspnea, Denies dyspnea on exertion, Denies orthopnea and Denies other (loss of consciousness) Resp Denies cough, Denies dyspnea and Denies dyspnea on exertion GI Denies hematochezia and Denies change in stool character Musc Denies abnormal gait, Denies muscle weakness, Denies numbness, Denies radiating pain into limb and Denies tingling Neuro Denies abnormal gait, Denies dizziness, Denies frequent falls, Denies numbness, Denies tingling and Denies weakness Endo Denies fatigue and Denies palpitations Physical Exam Vital Signs: Last Vital Signs Pulse 64 01/17/25 09:43 BP 132/70 01/17/25 09:43 BMI result Body Mass Index 33.5 Const General: cooperative, comfortable, no acute distress, alert and awake Nutritional Appearance: overweight Orientation/consciousness: patient oriented x3 Limitations: no limitations Neck Neck: Yes trachea midline, Yes supple and Yes no JVD Carotids: no bruits Resp Effort & Inspection: normal respiratory effort Auscultation: clear to auscultation bilaterally Cardio Jugular venous distension: no JVD Palpation: normal PMI Rate: regular rate Rhythm: regular rhythm Heart sounds: S1 normal heart sound present, S2 normal heart sound present, no click, no gallops, Murmur heart sound present systolic early and no rubs GI Auscultation: normal bowel sounds Skin General skin exam: no rashes or lesions noted Neuro General: patient oriented x3 and no focal motor deficits Extrem General: Yes no clubbing, cyanosis or edema, Yes venous stasis dermatitis and Yes other (Bilateral significant varicose veins, right greater than left) Psych Appearance: grossly normal Office Procedures EKG Details: EKG shows normal sinus rhythm with poor R-wave progression most likely due to lead placement [id number], Complete Assessment & Plan Assessment & Plan (1) CAD (coronary artery disease): Comment: Acute coronary syndrome with NSTEMI in 2007 with distal LAD 80% and ostial RPDA 90%, non intervenable Code(s): I25.10 - Atherosclerotic heart disease of [place] coronary artery without angina pectoris Category: Medical Plan: Stable CAD with no symptoms at current workload and exercise activity with distal coronary disease. We discussed management of coronary atherosclerosis. Importance of compliance with medication was discussed. Continue low-dose aspirin therapy for life. Continue aggressive risk factor modification. I have advised her to start taking rosuvastatin on a regular basis and recheck her l ipid panel in 2 months time. She understands agrees. Continue participate in regular physical activity and exercise program. So aggressive control blood pressure, see below. (2) HTN (hypertension): Code(s): I10 - Essential (primary) hypertension Category: Medical Qualifiers: Hypertension type: primary hypertension Qualified Code(s): I10 - Essential (primary) hypertension Plan: Hypertension with poor compliance with medication. Importance of good medical therapy was discussed. She says she is having side effects hydrochlorothiazide therapy. Therefore I have discussed with her to change her losartan hydrochlorothiazide combination to only losartan therapy. However with reduction in losartan therapy have discussed with potential increase in his blood pressure advised to monitor blood pressure at home maintain a log and call us with any changes in his blood pressure. Low-salt diet was discussed. Participate in aggressive weight loss program was discussed. Follow up in the clinic in 1 year's time, sooner p.r.n.. Thank you for allowing me to partake in her care Orders: Orders Lipid Panel 2 Months I25.10 - Atherosclerotic heart disease of [place] coronary artery without angina pectoris Medications: New losartan 100 mg PO DAILY 30 tabs 5RF I25.10 - Atherosclerotic heart disease [place] coronary artery without angina pectoris Discontinued losartan-hydrochlorothiazide 100-25 mg Discontinued Reason: Doctor's Order 1 tab PO DAILY 90 tabs 3RF Coding Level of Care Code Est Pt Level 4 (00149) Complex EM visit Add On G2211 Diagnoses CAD (coronary artery disease) I25.10 HTN (hypertension) I10 Hypertension type: primary hypertension CPT Codes EKG - CPT: 99546-[id number], Complete ([id number])
[2025-01-17 09:43] VITALS: BP 132/70; PULSE 64; BMI 33.5
--- OUTSIDE RECORDS SUMMARY | 2025-01-17 10:11 | XMS_ITS | Encounter Summary ---
Author Organization [employer] Address [address] [place] [address] [address] [place] [address] Care Team Providers Care Logistics Technician Name Role Phone Johanne Wheat MD Primary Care Provider [phone] Encounter Details Date Type Department Care Team ([facility] st Contact Info) Description 09/04/2022 Orders Only [facility] MEDICINE [address] [place], [place] [phone] Johanne Wheat MD [address] [place], [place] [phone] Social History Tobacco Use Types Packs/Day Years [...] on filedocumented in this encounter Care Teams Logistics Technician Relationship Specialty Start Date End Date Johanne Wheat MD [address] [place] [id number] PCP - General Family Medicine 02/05/22 documented as of this encounter
== END 2025-01-17 10:13 | disposition home or self-care (01) ==
LOC: HO.HCS 09:38
PROVIDERS: PCP General Practice; Visit Provider Internal Medicine Cardiovascular Disease
DX: I25.10 Atherosclerotic heart disease of native coronary artery without angina pectoris (principal); I10 Essential (primary) hypertension
CPT/HCPCS: 93010; 99214; G2211

== ENCOUNTER → 2025-01-17 09:38 | Outpatient (BNVA) | payer MEDICARE, MEDICAID, SELFPAY | PROVIDERS: PCP General Practice; Visit Provider Internal Medicine Cardiovascular Disease | DX: I25.10 Atherosclerotic heart disease of native coronary artery without angina pectoris (principal); I10 Essential (primary) hypertension; R94.31 Abnormal electrocardiogram [ECG] [EKG] | CPT/HCPCS: 93005; 99212 ==

== ENCOUNTER 2025-02-11 13:32 | Outpatient (REF) | payer MEDICARE, MEDICAID, SELFPAY ==
--- NOTE | ~2025-02-11 | US_ITS ---
EXAMINATION: US ABDOMEN LIMITED CLINICAL INFORMATION: Left lower abdominal pain and localized bulge following hemicolectomy. Evaluate for abdominal hernia.. COMPARISON: None available. TECHNIQUE: Real-time grayscale imaging of the left abdomen in the region of concern was performed. Imaging performed in standing position. FINDINGS: There is no evidence of abdominal hernia in the region of bulge/concern. No abnormal fluid collection, mass, or abnormal lymph nodes. Only normal subcutaneous fat and soft tissues are seen in the region of concern. US/US abdomen limited IMPRESSION: No evidence of hernia or other abnormality in the region of concern in the left abdomen. Electronically signed by: Juan Jose Jackson MD 02/11/2025 02:00 PM EDT
--- OUTSIDE RECORDS SUMMARY | 2025-02-11 13:41 | XMS_ITS | Encounter Summary ---
Author Organization [employer] Address [address] [facility] [address] [place] [address] Care Team Providers Care Gas Usage Meter Clerk Name Role Phone Johanne Wheat MD Primary Care Provider [phone] Reason for Visit * Reason Onset Date Comments Appointment Request 01/19/2024 Encounter Details Date Type Department Care Team ([facility] st Contact Info) Description 01/19/2024 Telephone [facility]ICINE [address] [place], [place] [phone] Johanne Wheat MD [address] [place], [place] [phone] Appointment Request Social History Tobacco Use Types Packs/Day Years Used Date Smoking Tobacco: Never Smokeless Tobacco: Never Alcohol Use Standard Drinks/Week Comments Never 0 (1 standard drink = 0.6 oz pur e alcohol) Housing Stability Answer Date Recorded What is your housing situation today? I have verashanon magana 04/02/[address] you li ve. Do you have problems with any of the following? None of the above 04/02/2023 Food Insecurity Answer Date Recorded Within the past 12 months, y ou worried that your food would run out before you got money to buy more: Never True 04/02/2023 Within the past 12 months,th e food you bought just didn't last and you didn't have enough money to get more: Never True Transportation Answer Date Recorded In the past 12 months, has l ack of transportation kept you from medical appts, meetings, work or from getting things needed for daily living? Yes, it has kept me from medical appointments or getting medications. 03/22/2023 Utilities Answer Date Recorded In the past 12 months, has t he electric, gas, oil or water company threatened to shut off services in your home? No 04/02/2023 Depression Answer Date Recorded Patient Health Questionnaire-2 Score 0 08/30/2022 Comments Unknown Sex and Gender Information Value Date Recorded Sex Assigned at Female 04/15/2022 10:14 AM EDT Legal Sex Female 10:14 AM EDT Gender Identity Female 04/15/2022 10:14 AM EDT Sexual Orientation Choose not to disclose 2021 10:14 AM EDT documented as of this encounter Miscellaneous Notes * Telephone Encounter - Susu Bellamy - 01/19/2024 9:27 AM EDT Tc from pt requesting PE appt, no availability, not needed for school, job or program purposes and pt denied any symptoms at the time of the call. documented in this encounter Plan of Treatment Not on file documented as of this encounter Visit Diagnoses Not on filedocumented in this encounter Care Teams Gas Usage Meter Clerk Relationship Specialty Start Date End Date Johanne Wheat MD [address] [place] [phone] PCP - General Family Medicine 02/05/22 documented as of this encounter
--- OUTSIDE RECORDS SUMMARY | 2025-02-11 13:41 | XMS_ITS | Clinical Summary ---
Author Organization [employer] Address [address] [facility] [address] [place] [address] Care Team Providers Care Deckhand [employer] Name Role Phone Johanne Wheat MD Primary Care Provider [phone] Allergies Active Allergy Reactions Criticality Noted Date Comments Peanut Allergen Powder-Dnfp 07/05/2015 Other reaction(s): Hives/Skin Rash Medications metoprolol succinate XL (Toprol-XL) 25 MG 24 hr tablet TAKE ONE TABLET BY MOUTH EVERY DAY 90 tablet 3 04/30/20 24 Active naproxen (Naprosyn) 500 MG tablet TAKE ONE TABLET BY MOUTH TWICE A DAY WITH FOOD NEEDED 120 tablet 11/04/19 25 Active rosuvastatin (Crestor) 40 MG tabletIndications: Essential hypertension Take 1 tablet (40 mg) by mouth Once per day. Take 1 tablet by mouth daily 90 tablet 3 01/05/20 25 Active losartan-hydroCHLO ROthiazide (Hyzaar) 100-25 MG tabletIndications: Essential hypertension Take 1 tablet by mouth Once per day. Take 1 tablet by mouth daily 90 tablet 3 01/05/20 25 Active isosorbide mononitrate ER (Imdur) 60 MG 24 hr tabletIndications: Essential hypertension Take 1 tablet (60 mg) by mouth Once per day. Take 1 tablet by mouth daily 90 tablet 3 01/05/20 25 Active amLODIPine (Norvasc) 5 MG tabletIndications: Essential hypertension Take 1 tablet (5 mg) by mouth Once per day. Take 1 tablet by mouth daily 90 tablet 3 01/05/20 25 Active levothyroxine (Synthroid) 125 MCG tablet Take 1 tablet (125 mcg) by mouth before breakfast. 90 tablet 3 02/01/20 25 026 Active losartan (Cozaar) 100 MG tablet TOME CHANI TABLETA VIA ORAL CADA EDUARDO 01/18/20 25 Active levothyroxine (Synthroid, Levoxyl) 100 MCG tabletIndications: Acquired hypothyroidism Take 1 tablet (100 mcg) by mouth before breakfast. 90 tablet 3 01/05/20 25 025 Discontinued Active Problems Problem Noted Date Diagnosed Date Alcohol use 02/07/2025 Overview (02/07/2025): > 6 drinks both weekend days Assessment & Plan (02/07/2025 8:31 AM EDT): Advised abstinence from alcohol due to rising LFT, history of colon cancer If abstinence is not possible, limit to two drinks or less in a sitting, pace yourself, drink other liquids and eat food with the alcohol Offered AUD services at [facility] she declines Repeat LFT in 6-8 weeks Class 1 obesity 01/27/2024 Adenocarcinoma of sigmoid colon 12/06/2022 Overview (12/06/2022): G2 extension into submucosa CT- neg for mets CEA- normal Followed by [facility] Assessment & Plan (02/07/2025 8:32 AM EDT): Seen at [facility] GI for colonic resection/alternate blood products that respect Christianity requirements At [facility], she was admitted on 05/22/23 for elective surgery and underwent Exploratory laparoscopy, open left colectomy, lysis of adhesions, mobilization of the splenic flexure and appendectomy She continues to follow-up with their GI practice Assessment & Plan (01/08/2023 10:03 AM EDT): Awaiting [facility] GI referral due to more options for colonic resection/alternate blood products that respect Christianity requirements Options are resection versus repeat colooscopy/close surveillance Osteopenia 12/23/2021 Varicose veins of both lower extremities 021 Coronary arteriosclerosis in patient with history of previous myocardial infarction 08/18/2020 Prediabetes 08/18/2020 Acquired hypothyroidism 07/05/2015 Essential hypertension 07/05/2015 Assessment & Plan (02/07/2025 8:33 AM EDT): Take Isosorbide, Amlodipine, Metoprolol in morning Take hydrochlorothiazide/Losartan at the same time as statin to help remember/adhere to evening pills Monitor BP at home every day Call if >160/100 at home for more than three readings with complete adherance Assessment & Plan (01/08/2023 10:02 AM EDT): Take Isosorbide, Amlodipine, Metoprolol in morning Can take hydrochlorothiazide/Losartan at the same time as statin to help remember/adhere to evening pills Monitor BP at home Call if >160/100 at home for more than three readings with complete adherance Assessment & Plan (08/30/2022 2:05 PM EDT): Take Isosorbide, hydrochlorothiazide, Losartan, Metoprolol in morning Amlodipine in PM Monitor BP at home Call if >160/100 at home Mixed hyperlipidemia 07/05/2015 Assessment & Plan (09/05/2022 2:50 PM EDT): Continue Rosuvastatin 40mg nightly Check lipids for goal LDL <100 today Coronary atherosclerosis of [place] coronary vess el 07/29/2011 Overview (01/03/2025): Last stress echo 06/2011 5:30 standard Omar without symptoms and with no EKG or echocardiographic evidence of inducible ischemia to 7 MET workload Last echo 05/2011 EF 55-60%, diastolic dysfunction and mild MR Esophageal reflux 07/29/2011 Encounters Date Type Department Care Team Description 02/04/2025 11:30 AM EDT Office Visit [facility] [address] [place] [address] Johanne Wheta MD Transaminitis (Primary Dx); Coronary arteriosclerosis in patient with history of previous myocardial infarction; Essential hypertension; Acquired hypothyroidism; Class 1 obesity; Adenocarcinoma of sigmoid colon (CMS/HCC); Alcohol use 02/04/2025 Travel 02/03/2025 Telephone [facility] [address] [place] [address] Johanne Wheat MD chart prep 01/31/[address] [address] Johanne Wheat MD 01/31/2025 Results Follow-Up [address] [address] Johanne Wheat MD POCT Glucose, POCT HGB A1C, TSH W/Reflex to FT4, Additional followed-up results: 4 01/10/[address] [address] Johanne Wheat MD Medication Question 01/05/[address] [address] Johanne Wheat MD 01/03/2025 2:15 PM EDT Office Visit [address] [address] Johanne Wheat MD Essential hypertension (Primary Dx); Dietary counseling; Exercise counseling; Class 1 obesity with serious comorbidity and body mass index (BMI) of 32.0 to 32.9 in adult, unspecified obesity type; Adenocarcinoma of sigmoid colon (CMS/HCC); Prediabetes; Encounter for screening mammogram for malignant neoplasm of breast; Encounter for osteoporosis screening in asymptomatic postmenopausal patient; LLQ pain; Acquired hypothyroidism 01/03/2025 Travel 12/31/[address] [address] Johanne Wheat MD Chart prep 12/23/[address] [address] Johanne Wheat MD Pre-visit Planning (SDPR screening completed on 08/24/2024) from Last 3 Months Immunizations Immunization Administration Dates Next Due Influenza High-dose Quadriva lent Preservative Free 04/03/2022,03/13/2021,05/26/2020 Influenza injectable quadriv alent IIV4 with preservative 07/05/2015 Influenza injectable quadriv alent preservative free 03/19/2019 Influenza, IIV3, injectable 03/22/2011 Influenza, Split (incl. brain fied surface antigen) 03/31/2013,02/10/2012 Moderna Covid-19 Vaccine 12+ 01/24/2022,09/27/19 21,08/29/2020 Pneumococcal Conjugate PCV 13 11/04/2017 Pneumococcal Polysaccharide PPSV23 03/19/2019 TD (adult), 2 Lf tetanus tox oid, preservative free, adsorbed 01/17/2022 Tdap 03/22/2011 Zoster, Recombinant 04/03/2022 Zoster, live 07/05/2015 Social History Tobacco Use Types Packs/Day Years Used Date Smoking Tobacco: Never Smokeless Tobacco: Never Tobacco Cessation:Counseling Given: Not Answered Alcohol Use Standard Drinks/Week Comments Yes 0 (1 standard drink = 0.6 oz pur e alcohol) Alcohol Answer Date Recorded How often do you have a drink containing alcohol ? 2 02/07/2025 How many drinks containing a lcohol do you have on a typical day when you are drinking? 2 02/07/2025 How often do you have six or more drinks on one occasion? 1 02/07/2025 Depression Answer Date Recorded Patient Health Questionnaire-9 Score 1 02/04/2025 Patient Health Questionnaire-9 Score 1 02/04/2025 Last PHQ-9: Questionnaire Data Not on file 0 02/04/2025 Housing Stability Answer Date Recorded What is your housing situation today? I have vera magana 08/24/[address] you li ve. Do you have problems with any of the following? None of the above 08/24/2024 Food Insecurity Answer Date Recorded Within the past 12 months, y ou worried that your food would run out before you got money to buy more: Never True 08/24/2024 Within the past 12 months,th e food you bought just didn't last and you didn't have enough money to get more: Never True 04/2025 Transportation Answer Date Recorded In the past 12 months, has l ack of transportation kept you from medical appts, meetings, work or from getting things needed for daily living? No 08/24/2024 Intimate Partner Violence Answer Date R ecorded Within the last year, have y ou been afraid of your partner or ex-partner? 2 02/07/2025 Within the last year, have y ou been humiliated or emotionally abused in other ways by your partner or ex-partner? 2 Within the last year, have y ou been kicked, hit, slapped, or otherwise physically hurt by your partner or ex-partner? 2 02/07/2025 Within the last year, have y ou been raped or forced to have any kind of sexual activity by your partner or ex-partner? 2 02/07/2025 Utilities Answer Date Recorded In the past 12 months, has t he [employer], [employer], oil or water [employer] threatened to shut off services in your home? No 08/24/2024 Depression Answer Date Recorded Patient Health Questionnaire-2 Score 1 02/04/2025 Internet Access Answer Date Recorded Internet Access Q1 Yes 08/24/2024 Internet Access Q2 Not on file 08/24/2024 Comments No Sex and Gender Information Value Date Recorded Sex Assigned at Female 04/15/2022 10:14 AM EDT Legal Sex Female 10:14 AM EDT Gender Identity Female 04/15/2022 10:14 AM EDT Sexual Orientation Choose not to disclose 2021 10:14 AM EDT Last Filed Vital Signs Vital Sign Reading Time Taken Comments Blood Pressure 179/90 02/04/2025 11:30 AM EDT Pulse 53 02/04/2025 11:30 AM EDT Temperature 36.3 C (97.3 F) 02/04/2025 11:30 AM EDT Respiratory Rate 20 02/04/2025 11:30 AM EDT Oxygen Saturation 98% 02/04/2025 11:30 AM EDT Inhaled Oxygen Concentration - - Weight 84.8 kg (187 lb) 02/04/2025 11:30 AM EDT Height 157.5 cm (5' 2 ) 02/04/2025 11:30 AM EDT Body Mass Index 34.2 02/04/2025 11:30 AM EDT Plan of Treatment Health Maintenance Due Date Last Done Comments CT Colonography 1950 FIT DNA/Cologuard 1950 FIT 1950 FOBT 1950 Sigmoidoscopy 1950 RSV Patients and Patients Aged 60 years or older (1 - Risk 60-74 years 1-dose series) 2011 Zoster Vaccines (3 of 3) 05/29/2022 04/03/2022, 06/17 Mammogram 02/05/2024 02/04/2023, 12/15, 12/12/2021, Additional history exists COVID-19 Vaccine ( season) 2024 01/24/2022, 09/26/2020, 08/29/2020 Influenza Vaccine (#1) 2025 , 03/13/2021, 05/26/2020, Additional history exists SDOH Screening 08/24/2025 08/24/2024 Alcohol/Substance Use Screening 01/03/2026 01/03/2025 Diabetes: Hemoglobin A1C 01/03/2026 025, 08/30/2022, 12/06/2021, Additional history exists Depression Screening 02/04/2026 02/04/2025, 02/05/20 Tobacco Screening 02/07/2026 02/07/2025 Colonoscopy 04/16/2026 04/16/2023 Colorectal Cancer Screening 04/16/2026 Lipid Panel 01/05/2030 01/05/2025, 08/14, 01/09/2022, Additional history exists DTaP/Tdap/Td Vaccines (3 - Td or Tdap) 01/18/2032 01/17/2022, 03/22/2011 Pneumococcal Vaccine: 50+ Years Completed 03/19/2019, 11/04/2017 Hepatitis C Screening Completed 12/06/2021 HIB Vaccines Aged Out No longer eligi ble based on patient's age to complete this topic HPV Vaccines Aged Out No longer eligi ble based on patient's age to complete this topic Hepatitis A Vaccines Aged Out No long er eligible based on patient's age to complete this topic Hepatitis B Vaccines Aged Out No long er eligible based on patient's age to complete this topic IPV Vaccines Aged Out No longer eligi ble based on patient's age to complete this topic Meningococcal B Vaccine Aged Out No l onger eligible based on patient's age to complete this topic Meningococcal Vaccine Aged Out No felicia garth eligible based on patient's age to complete this topic RSV under 20 months Aged Out No longe r eligible based on patient's age to complete this topic Rotavirus Vaccines Aged Out No longer eligible based on patient's age to complete this topic Procedures Procedure Name Priority Date/Time Associated Diagnosis Comments T4, FREE Routine 01/05/2025 8:26 AM EDT CORTISOL RANDOM Routine 01/05/2025 8:26 AM EDT Essential hypertension CBC WITH AUTO DIFFERENTIAL Routine 01/05/2025 8:26 AM EDT Essential hypertension LIPID PANEL, STANDARD Routine 01/05/2025 8:26 AM EDT Essential hypertension COMPREHENSIVE METABOLIC PANEL Routine 01/05/2025 8:26 AM EDT Essential hypertension TSH W/REFLEX TO FT4 Routine 01/05/2025 8 :26 AM EDT Essential hypertension POCT GLYCATED HEMOGLOBIN, TOTAL Routine 01/03/2025 2:50 PM EDT Exercise counseling Prediabetes POCT GLUCOSE Routine 01/03/2025 2:49 PM EDT Exercise counseling Prediabetes HM COLONOSCOPY Routine 04/16/2023 BI MAMMOGRAM SCREENING TOMOSYNTHESIS BILATERAL Routine 02/04/2023 2:05 PM EDT ZZZ HISTORICAL HEPATITIS C AB W/REFL TO HCV RNA, QN, PCR Routine 12/06/2021 10:40 AM EDT from Last 3 Months or Most Recently Relevant to Health Maintenance Results * Cortisol Random (01/05/2025 8:26 AM EDT) Cortisol Random 17.7 ug/dL [facility] Comment:Reference Range*: Be fore 10 am 6.2-19.4 ug/dL After 5 pm 2.3-11.9 ug/dL*Please interpret above results accordingly.This test was performed using the NeuroQuest chemiluminescentmethod. Values obtained from different assay methods cannotbe used interchangeably.Patients receiving fludrocortisone, prednisolone orprednisone may show artificially elevated cortisol valuesdue to cross-reactivity. 01/05/2025 8:26 AM EDT 01/05/2025 11:13 AM EDT Johanne Wheat MD LAB BLOOD ORDERABLES Final Res ult Performing Organization Address [facility] Co de Phone Number [facility] [address] [place] [phone] * (ABNORMAL) TSH W/Reflex to FT4 (01/05/2025 8:26 AM EDT) TSH reflex Free T4 15.06(H) 0.32 - 4.0 uIU/mL [facility] Blood Venous blood specimen / Unknown 01/05/2025 8:26 AM EDT 01/05/2025 11:13 AM EDT Johanne Wheat MD LAB BLOOD ORDERABLES Final Res ult Performing Organization Address [facility] Co de Phone Number [facility] [address] [place] [phone] * CBC auto differential (01/05/2025 8:26 AM EDT) White Blood Count 5.9 4.8 - 10.8 X10*3/uL [facility] Red Blood Count 4.69 4.20 - 5.50 X10*6/uL [facility] Hemoglobin 14.1 12.0 - 16.0 g/dl [facility] Hematocrit 42.8 37.0 - 47.0 % [facility] Mean Corpuscular Volume 91.3 80.0 - 98.0 fL [facility] Mean Corpuscular Hemoglobin 30.1 27.0 - 33.0 pg [facility] Mean Corpuscular HGB Conc 32.9 31.0 - 35.0 g/dl [facility] Red Cell Distribution Width 13.8 11.0 - 16.0 % [facility] Platelet Count 261 160 - 400 X10*3/uL [facility] Mean Platelet Volume 11.4 9.4 - 12.3 fL [facility] Neutrophils Percent Auto 56.2 45 - 73 % [facility] Imm Gran Pct Auto 0.3 0.0 - 0.4 % [facility] Lymphocytes Percent Auto 29.0 20 - 40 % [facility] Monocytes Percent Auto 10.7 2 - 11 % [facility] Eosinophils Percent Auto 3.1 0 - 4 % [facility] Basophils Percent Auto 0.7 0 - 2 % [facility] NRBC Pct Auto 0.0 0.0 - 0.2 /100WBC [facility] Neutrophils Absolute Auto 3.3 2.0 - 8.3 x10*3/uL [facility] Imm Gran Abs Auto 0.02 0.00 - 0.03 X10*3/uL [facility] Lymphocytes Absolute Auto 1.7 1.2 - 4.9 X10*3/uL [facility] Monocytes Absolute Auto 0.6 0.1 - 1.2 X10*3/uL [facility] Eosinophils Absolute Auto 0.2 0.0 - 0.4 X10*3/uL [facility] Basophils Absolute Auto 0.0 0.0 - 0.2 X10*3/uL [facility] NRBC Abs Auto 0.000 0.0 - 0.012 X10*3/uL [facility] Blood Venous blood specimen / Unknown 01/05/2025 8:26 AM EDT 01/05/2025 11:07 AM EDT us Johanne Wheat MD LAB BLOOD ORDERABLES Final Res ult [facility] [address] [place] [phone] * T4, Free (01/05/2025 8:26 AM EDT) Free T4 (Free Thyroxine) 1.01 0.71 - 1.85 ng/dL [facility] 01/05/2025 8:26 AM EDT 01/05/2025 11:13 AM EDT us Johanne Wheat MD LAB BLOOD ORDERABLES Final Res ult Performing Organization Address [facility] Co de Phone Number [facility] [address] [place] [phone] [phone] * (ABNORMAL) Lipid Panel, Standard (01/05/2025 8:26 AM EDT) Triglycerides 158(H) <150 mg/dL [facility] Comment:Desirable Triglyceri de: less than 150 mg/dLBorderline High Triglyceride 150-199 mg/dLHigh Triglyceride: 200-499 mg/dLVery High Triglyceride: greater than or equal to 5OO mg/dL Cholesterol 236(H) <200 mg/dL [facility] Comment:Desirable Cholestero l: less than 200 mg/dLBorderline High Cholesterol: 200-239 mg/dLHigh Cholesterol: greater than 239 mg/dL LDL Cholesterol Calculated 155(H) <100 mg/dL [facility] Comment:Desirable LDL: less than 100 mg/dLNear Optimal/Above Optimal LDL: 110- 129 mg/dLBorderline High LDL: 130-159 mg/dLHigh LDL: 160-189 mg/dLVery High LDL: greater than or equal to 190 mg/dL HDL Cholesterol 50 >40 mg/dL [facility] Comment:Desirable HDL: great er than 40 mg/dL Note: This HDL assay may give artificially low results in patients with liver disease. Blood Venous blood specimen / Unknown 01/05/2025 8:26 AM EDT 01/05/2025 11:13 AM EDT us Johanne Wheat MD LAB BLOOD ORDERABLES Final Res ult Performing Organization Address [facility]/ZIP Co de Phone Number [facility] [address] [place] [phone] * (ABNORMAL) Comprehensive Metabolic Panel (01/05/2025 8:26 AM EDT) Sodium 142 135 - 145 mmol/L [facility] Potassium 3.6 3.3 - 5.1 mmol/L [facility] Chloride 108 96 - 108 mmol/L [facility] Carbon Dioxide 28 22 - 29 mmol/L [facility] Anion Gap 10(L) 12 - 20 [facility] Urea Nitrogen (BUN) 9 9 - 16 mg/dL [facility] Creatinine, Serum 0.65 0.5 - 1.4 mg/dL [facility] Estimated Glomerular Filt Rate >60 [facility] Comment:Chronic Kidney Disea se: Estimated GFR < 60 mL/min/1.16v9[place]se[place] Kidney Disease: Estimated GFR < 15 mL/min/1.73m2 Glucose 95 60 - 115 mg/dL [facility] Calcium 9.4 8.4 - 10.2 mg/dL [facility] Bilirubin, Total 0.8 0.0 - 1.0 mg/dL [facility] Aspartate Amino Transferase 119(H) 5 - 31 U/L [facility] Alanine Aminotransferase 129(H) 0 - 31 U/L [facility] Total Protein 7.1 6.5 - 8.0 g/dL [facility] Albumin Level 3.9 3.5 - 5.0 g/dL [facility] Alkaline Phosphatase 83 39 - 117 U/L [facility] Blood Venous blood specimen / Unknown 01/05/2025 8:26 AM EDT 01/05/2025 11:13 AM EDT us Johanne Wheat MD LAB BLOOD ORDERABLES Final Res ult [facility] [address] [place] [phone] * POCT HGB A1C (01/03/2025 2:50 PM EDT) Hemoglobin A1C 5.5 4.0 - 5.7 % QC Media Lot # [id number] Lot# Expiration Date [id number] Blood 01/03/2025 2:50 PM EDT Johanne Wheat MD POINT OF CARE TEST ENTER/EDIT ORDERABLES Final Result * POCT Glucose (01/03/2025 2:49 PM EDT) Glucose Blood, POC 97 60 - 200 mg/dL QC Media Lot # [id number] Lot# Expiration Date [id number] Blood Capillary blood specimen / Unknown 01/03/2025 2:49 PM EDT Johanne Wheat MD POINT OF CARE TEST ENTER/EDIT ORDERABLES Final Result * (ABNORMAL) Colonoscopy (04/16/2023) Colonoscopy Abnormal(A ) Normal Narrative Johanne Wheat MD - 04/16/202304/2023 colonoscopy showed large sigmoid polyp, pathology consistent with invasive carcinoma. She was admitted on 05/22/23 to [facility] for elective surgery and underwent Exploratory laparoscopy, open left colectomy, lysis of adhesions, mobilization of the splenic flexure and appendectomy [facility] Provider HEALTH MAINTENANCE Final Result * BI Mammogram Screening Tomosynthesis Bilateral (02/04/2023 2:05 PM EDT) Anatomical Region Laterality Modality Breast Bilateral Mammography 02/04/2023 2:05 PM EDT Narrative 02/04/2023 5:27 PM EDT [facility] [address] [place] [address] Mammography Report Signed Patient: Rica Grider MR#: [id number] : 1950 Acct:[id number] Age/Sex: 72 / F ADM Date: 02/04/23 Loc: [facility] Attending Dr: Johanne Wheat MD Ordering Physician: Johanne Wheat Results: 1Negative Date of Service: 02/04/23 Follow Up: 1 Year From Orig inal Mammogram Procedure(s): MM tomosynthesis screening BI Accession Number(s): [id number] cc: Johanne Wheat EXAMINATION: MM SCREENING DIGITAL BREAST TOMOSYNTHESIS, BILATERAL CLINICAL INFORMATION: Screening. Asymptomatic. COMPARISON: Mammography: This study is compared with prior exams dating back to 2015. TECHNIQUE: Digital breast tomosynthesis is performed in both the craniocaudal and mediolateral oblique views along with computer-aided detection (CAD). Synthesized 2D images are generated from the tomosynthesis. FINDINGS: There are scattered areas of fibroglandular density (ACR BI-RADS breast composition Category b). There are no significant masses, abnormal calcifications, or other abnormalities. MM/MM tomosynthesis screening BI IMPRESSION: No mammographic evidence of malignancy. ASSESSMENT: BI-RADS BI-RADS 1 - Negative RECOMMENDATION: Routine annual mammography screening. 1 year F/U This examination should not preclude the clinical evaluation of a suspicious palpable abnormality. This patient's information was entered into a reminder system with a target due date for their next mammogram. Dictated By: Ana Healy MD Signed By: <Electronically signed by Ana Healy MD in OV> 02/04/23 1725 DD/ 1405 TD/TT: Instrument Installer: Procedure Note Donotuseinterpreter, Image - 02/04/2023 [facility] [address] [place] [address] Mammography Report Signed Patient: Jericho Grider#: [id number] : 2Acct:[id number] Age/Sex: 72 / FADM Date: 02/04/23 Loc: [facility] Attending Dr: Johanne Wheat MD Ordering Physician: Jared Wheatults: 1Negative Date of Service: 02/04/23Follow Up: 1 Year From Orig inal Mammogram Procedure(s): MM tomosynthesis screening BI Accession Number(s): [id number] cc: Johanne Wheat EXAMINATION: MM SCREENING DIGITAL BREAST TOMOSYNTHESIS, BILATERAL CLINICAL INFORMATION: Screening. Asymptomatic. COMPARISON: Mammography: This study is compared with prior exams dating back to 2015. TECHNIQUE: Digital breast tomosynthesis is performed in both the craniocaudal and mediolateral oblique views along with computer-aided detection (CAD). Synthesized 2D images are generated from the tomosynthesis. FINDINGS: There are scattered areas of fibroglandular density (ACR BI-RADS breast composition Category b). There are no significant masses, abnormal calcifications, or other abnormalities. MM/MM tomosynthesis screening BI IMPRESSION: No mammographic evidence of malignancy. ASSESSMENT: BI-RADS BI-RADS 1 - Negative RECOMMENDATION: Routine annual mammography screening. 1 year F/U This examination should not preclude the clinical evaluation of a suspicious palpable abnormality. This patient's information was entered into a reminder system with a target due date for their next mammogram. Dictated By: Ana Healy MD Signed By: <Electronically signed by Ana Healy MD in OV> 02/04/23 1725 DD/ 1405 TD/TT: Instrument Installer: Johanne Wheat MD IMG BI PROCEDURES Final Result * HEPATITIS C AB W/REFL TO HCV RNA, QN, PCR (12/06/2021 10:40 AM EDT) HEPATITIS C ANTIBODY NON-REACT SUBHASH NON-REACT SUBHASH [facility] INDEX 0.10 <1.00 [facility] Comment: HCV antibody was non-reactive. There is no laboratory evidence of HCV infection. In most cases, no further action is required. However, if recent HCV exposure is suspected, a test for HCV RNA (test code 16225) is suggested. For additional information please refer to http://education.[employer].Everlater/faq/YME37g3 (This link is being provided for informational/ educational purposes only.) 12/06/2021 10:4 0 AM EDT Antonia Thapa NP HISTORICAL/NON ORDERABLE LABS F inal Result [facility] [address] from Last 3 Months or Most Recently Relevant to Health Maintenance Insurance MEDIC[place] [address] [id number] [facility] STANDARD Care Teams Deckhand Crab Boat Relationship Specialty Start Date End Date Johanne Wheat MD [address] [place] [address] PCP - General Family Medicine 02/05/22
--- OUTSIDE RECORDS SUMMARY | 2025-02-11 13:41 | XMS_ITS | Encounter Summary ---
Author Organization [employer] Address [address] [place] [address] [address] [place] [address] Care Team Providers Care Fine Grader Name Role Phone Johanne Wheat MD Primary Care Provider [phone] Encounter Details Date Type Department Care Team (Late st Contact Info) Description 11/08/2022 Abstract [facility] [address] [place] [address] Johanne Wheat MD [address] [place] [address] Social History Tobacco Use Types Packs/Day Years [...] AM EDT documented as of this encounter Plan of Treatment Not on file documented as of this encounter Visit Diagnoses Not on filedocumented in this encounter Care Teams Fine Grader Relationship Specialty Start Date End Date Johanne Wheat MD [address] [place], [place] [phone] PCP - General Family Medicine 02/05/22 documented as of this encounter
--- OUTSIDE RECORDS SUMMARY | 2025-02-11 13:41 | XMS_ITS | Encounter Summary ---
Author Organization [employer] Address [address] [place] [address] [address] [address] Care Team Providers Care Licensed Optician Name Role Phone Johanne Wheat MD Primary Care Provider [phone] Encounter Details Date Type Department Care Team ([facility] st Contact Info) Description 09/04/2022 Orders Only [facility] [address] [place], [place] [phone] Johanne Wheat MD [address] [place], [place] [phone] Social History Tobacco Use Types Packs/Day Years [...] on filedocumented in this encounter Care Teams Licensed Optician Relationship Specialty Start Date End Date Johanne Wheta MD [address] [place] [id number] PCP - General Family Medicine 02/05/22 documented as of this encounter
--- OUTSIDE RECORDS SUMMARY | 2025-02-11 13:41 | XMS_ITS | Encounter Summary ---
Author Organization [employer] Address [address] [facility] [address] [place] [address] Care Team Providers Care Transportation Attendant Name Role Phone Johanne Wheat MD Primary Care Provider [phone] Encounter Details Date Type Department Care Team (Late st Contact Info) Description 01/31/2025 Orders Only [facility] [address] [place], [place] [phone] Johanne Wheat MD [address] [place], [place] [phone] Social History Tobacco Use Types Packs/Day Years Used Date Smoking Tobacco: Never Smokeless Tobacco: Never Alcohol Use Standard Drinks/Week Comments Never 0 (1 standard drink = 0.6 oz pur e alcohol) Depression Answer Date Recorded Patient Health Questionnaire-9 [...] things needed for daily living? No 08/24/2024 Utilities Answer Date Recorded In the past [...] Diagnoses Not on filedocumented in this encounter Additional Health Concerns Assessment Noted Time PHQ-9 Depression Total Score: 6 01/05/20 25 8:28 AM EDT documented as of this encounter Care Teams Transportation Attendant Relationship Specialty Start Date End Date Johanne Wheat MD [address] [place] [address] PCP - General Family Medicine 02/05/22 documented as of this encounter
--- OUTSIDE RECORDS SUMMARY | 2025-02-11 13:41 | XMS_ITS | Encounter Summary ---
Author Organization [employer] Address [address] [place] [address] [address] [address] Care Team Providers Care Rivet Sorter Name Role Phone Johanne Wheat MD Primary Care Provider [phone] Reason for Visit * Reason Onset Date Comments Results 01/31/2025 Encounter Details Date Type Department Care Team ([facility] st Contact Info) Description 01/31/2025 Results Follow-Up [facility] [address] [place] [address] Johanne Wheat MD [address] [place] [address] POCT Glucose, POCT HGB A1C, TSH W/Reflex to FT4, Additional followed-up results: 4 Social History Tobacco Use Types Packs/Day Years [...] encounter Miscellaneous Notes * Telephone Encounter - Amber Ojeda RN - 01/31/2025 10:31 AM EDT TC placed to the pt with S lead electrician #[id number] to inform and inquire about the pt lab results below. Pt states that she has been compliant with once daily Synthroid medication and was advised that PCP will be increasing the dose to 125 mcg. Pt was informed that PCP would like to run a few more blood tests specifically for the liver and the pt was agreeable to coming in on 02/04/2025 to see PCP inoffice. ----- Message from Johanne Wheat MD sent at 01/31/2025 10:29 AM EDT ----- Can we see if patient is taking hey Synthroid? Is so, we should increase the dose to 125mcg, if notshe needs to start taking it daily. Also we need to do a few more tests regarding her liver. Can I have a tele or in person appointment on Friday or Friday this week? ----- Message ----- From: Mariana Long MA Sent: 01/03/2025 2:50 PM EDT To: Johanne Wheat MD * Result Encounter Note - Johanne Wheat MD - 01/31/2025 10:29 AM EDT Can we see if patient is taking hey Synthroid? Is so, we should increase the dose to 125mcg, if notshe needs to start taking it daily. Also we need to do a few more tests regarding her liver. Can I have a tele or in person appointment on Friday or Friday this week? documented in this encounter Plan of Treatment Not on file documented as of this encounter Visit Diagnoses Not on filedocumented in this encounter Additional Health Concerns Assessment Noted Time PHQ-9 Depression Total Score: 6 01/05/20 25 8:28 AM EDT documented as of this encounter Care Teams Rivet Sorter Relationship Specialty Start Date End Date Johanne Wheat MD [address] [place] [id number] PCP - General Family Medicine 02/05/22 documented as of this encounter
== END 2025-02-11 13:33 | disposition home or self-care (01) ==
LOC: HO.US 13:32
PROVIDERS: PCP General Practice; Visit Provider General Practice
DX: R10.32 Left lower quadrant pain (principal)
CPT/HCPCS: 76705

== ENCOUNTER → 2025-02-11 13:34 | Outpatient (BNV) | payer MEDICARE, MEDICAID, SELFPAY | PROVIDERS: PCP General Practice; Visit Provider Radiology Diagnostic Radiology | DX: R10.32 Left lower quadrant pain (principal) | CPT/HCPCS: 76705 ==

== ENCOUNTER 2025-02-22 14:15 | Outpatient (REF) | payer MEDICARE, MEDICAID, SELFPAY ==
--- NOTE | ~2025-02-22 | MM_ITS ---
EXAMINATION: DXA BONE DENSITY AXIAL HISTORY: screening for osteoporosis, age >65, no prior TECHNIQUE: Nutmeg Dual energy absorptiometry (DEXA) of the lumbar spine, total left hip, and femoral neck was performed. COMPARISON: Comparison is made with the prior examination dated 12/12/2021. FINDINGS: The bone mineral density of the lumbar spine is 1.035 g/cm2, corresponding to a T-score of -1.2, and a Z-score of 0.0. This is indicative of osteopenia. This represents a BMD change of 6.0% compared to the prior exam. This is statistically significant. The bone mineral density of the left total hip is 0.976 g/cm2, corresponding to a T-score of -0.2, and a Z-score of 1.0. This is indicative of normal bone mineral density. This represents a BMD change of -0.7% compared to the prior exam. This is not statistically significant. The bone mineral density of the left femoral neck is 0.872 g/cm2, corresponding to a T-score of -1.2, and a Z-score of 0.3. This is indicative of osteopenia. This represents a BMD change of -2.9% compared to the prior exam. FRACTURE RISK: The FRAX index suggests a ten year probability of major osteoporotic fracture of 5.3%, and of hip fracture 0.7%. MM/XR DEXA axial skeleton IMPRESSION: Based on bone mineral density, and according to World Health Organization (WHO) criteria, the diagnosis is consistent with osteopenia. Statistically, 68% of repeat scans fall within 1 SD (+/- 0.010 g/cm2 for AP spine L1-L4) and 1 SD (+/- 0.012 g/cm2 for femur total) FRAX is a trademark of the [employer], a World Health Organization (WHO) Collaborating Center. Electronically signed by: Max Monte MD 02/22/2025 02:55 PM EDT
--- NOTE | ~2025-02-22 | MM_ITS ---
EXAMINATION: MM SCREENING DIGITAL BREAST TOMOSYNTHESIS, BILATERAL CLINICAL INFORMATION: Screening. Asymptomatic. COMPARISON: Mammography: Comparison is made with available priors TECHNIQUE: Digital breast mammography with tomosynthesis is performed in both the craniocaudal and mediolateral oblique views along with computer-aided detection (CAD). FINDINGS: There are scattered areas of fibroglandular density (ACR BI-RADS breast composition Category b). There are no significant masses, abnormal calcifications, or other abnormalities. MM/MM tomosynthesis screening BI IMPRESSION: No mammographic evidence of malignancy. ASSESSMENT: BI-RADS BI-RADS 1 - Negative RECOMMENDATION: Routine annual mammography screening. 1 year F/U This examination should not preclude the clinical evaluation of a suspicious palpable abnormality. This patient's information was entered into a reminder system with a target due date for their next mammogram. Electronically signed by: Toyin Moon DO 02/28/2025 01:13 PM EDT
--- OUTSIDE RECORDS SUMMARY | 2025-02-22 16:49 | XMS_ITS | Clinical Summary ---
Author Organization [employer] Address [address] [facility] 7[address] [place] [address] Care Team Providers Care Wheat Buyer Name Role Phone Johanne Wheat MD Primary Care Provider [phone] Allergies Active Allergy Reactions Criticality Noted Date [...] with the alcohol Offered AUD services at [facility] she declines Repeat LFT in 6-8 weeks Class 1 obesity 01/27/2024 Adenocarcinoma of sigmoid colon 12/06/2022 Overview (12/06/2022): G2 extension into submucosa CT- neg for mets CEA- normal Followed by [facility] Assessment & Plan (02/07/2025 8:32 AM EDT): Seen at [facility] GI for colonic resection/alternate blood products that respect Zoroastrianism requirements At [facility], she was admitted on 05/22/23 for elective surgery and underwent Exploratory laparoscopy, open left colectomy, lysis of adhesions, mobilization of the splenic flexure and appendectomy She continues to follow-up with their GI practice Assessment & Plan (01/08/2023 10:03 AM EDT): Awaiting [facility] GI referral due to more options for colonic resection/alternate blood products that respect Zoroastrianism requirements Options are resection versus repeat colooscopy/close [...] goal LDL <100 today Coronary atherosclerosis of [place] coronary vess el 07/29/2011 Overview (01/03/2025): Last stress echo 06/2011 5:30 standard Omar without symptoms and with no EKG or echocardiographic evidence of inducible ischemia to 7 MET workload Last echo 05/2011 EF 55-60%, diastolic dysfunction and mild MR Esophageal reflux 07/29/2011 Encounters Date Type Department Care Team Description 02/04/2025 11:30 AM EDT Office Visit [facility] MEDICINE [address] [place] [address] Johanne Wheat MD Transaminitis (Primary Dx); Coronary arteriosclerosis in patient with history of previous myocardial infarction; Essential hypertension; Acquired hypothyroidism; Class 1 obesity; Adenocarcinoma of sigmoid colon (CMS/HCC); Alcohol use 02/04/2025 Travel 02/03/[address] [facility] MEDICINE [address] [place] [address] Johanne Wheat MD chart prep 01/31/2025 Orders Only [address] [address] Johanne Wheat MD 01/31/2025 Results Follow-Up [address] [address] Johanne Wheat MD POCT Glucose, POCT HGB A1C, TSH W/Reflex to FT4, Additional followed-up results: 4 01/10/[address] [address] Johanne Wheat MD Medication Question 01/05/2025 Orders Only [address] [address] Johanne Wheat MD 01/03/2025 2:15 PM EDT Office Visit [address] [address] Johanne Wheat MD Essential hypertension (Primary Dx); Dietary counseling; Exercise counseling; Class 1 obesity with serious comorbidity and body mass index (BMI) of 32.0 to 32.9 in adult, unspecified obesity type; Adenocarcinoma of sigmoid colon (CMS/HCC); Prediabetes; Encounter for screening mammogram for malignant neoplasm of breast; Encounter for osteoporosis screening in asymptomatic postmenopausal patient; LLQ pain; Acquired hypothyroidism 01/03/2025 Travel 12/31/[address] [address] Johanne Wheat MD Chart prep 12/23/2024 Patient Outreach [address] [address] Johanne Wheat MD Pre-visit Planning (SDWI screening completed on 08/24/2024) from Last 3 [...] the past 12 months, has t he [employer], oil or water [employer] threatened to shut off services in your [...] Additional history exists COVID-19 Vaccine ( season) 2025 01/24/2022, 09/26/2020, 08/29/2020 Influenza Vaccine (#1) 2025 [...] Procedure Name Priority Date/Time Associated Diagnosis Comments BD DEXA AXIAL Routine 02/22/2025 2:35 PM EDT Encounter for osteoporosis screening in asymptomatic postmenopausal patient US ABDOMEN LIMITED Routine 02/11/2025 1: 40 PM EDT LLQ pain T4, FREE Routine 01/05/2025 8:26 AM EDT [...] Recently Relevant to Health Maintenance Results * BD DEXA Axial (02/22/2025 2:35 PM EDT) Anatomical Region Laterality Modality Body Radiographic Myrna ging 02/22/2025 2:35 PM EDT Narrative 02/22/2025 2:58 PM EDT [facility]'s [address] [place] [address] Mammography Report Signed Patient: Rica Grider MR#: [id number] : 1950 Acct:[id number] Age/Sex: 74 / F ADM Date: 02/22/25 Loc: LYNETTE Attending Dr: Johanne Wheat MD Ordering Physician: Johanne Wheat Results: Date of Service: 02/22/25 Follow Up: Procedure(s): XR DEXA axial skeleton Accession Number(s): [id number] cc: Johanne Wheat EXAMINATION: DXA BONE DENSITY AXIAL HISTORY: screening for osteoporosis, age >65, no prior TECHNIQUE: RainStor Dual energy absorptiometry (DEXA) of the lumbar spine, total left hip, and femoral neck was performed. COMPARISON: Comparison is made with the prior examination dated 12/12/2021. FINDINGS: The bone mineral density of the lumbar spine is 1.035 g/cm2, corresponding to a T-score of -1.2, and a Z-score of 0.0. This is indicative of osteopenia. This represents a BMD change of 6.0% compared to the prior exam. This is statistically significant. The bone mineral density of the left total hip is 0.976 g/cm2, corresponding to a T-score of -0.2, and a Z-score of 1.0. This is indicative of normal bone mineral density. This represents a BMD change of -0.7% compared to the prior exam. This is not statistically significant. The bone mineral density of the left femoral neck is 0.872 g/cm2, corresponding to a T-score of -1.2, and a Z-score of 0.3. This is indicative of osteopenia. This represents a BMD change of -2.9% compared to the prior exam. FRACTURE RISK: The FRAX index suggests a ten year probability of major osteoporotic fracture of 5.3%, and of hip fracture 0.7%. MM/XR DEXA axial skeleton IMPRESSION: Based on bone mineral density, and according to World Health Organization (WHO) criteria, the diagnosis is consistent with osteopenia. Statistically, 68% of repeat scans fall within 1 SD (+/- 0.010 g/cm2 for AP spine L1-L4) and 1 SD (+/- 0.012 g/cm2 for femur total) FRAX is a trademark of the [employer] for Metabolic Bone Disease, a World Health Organization (WHO) Collaborating Center. Electronically signed by: Max Monte MD 02/22/2025 02:55 PM EDT RP Dictated By: Max Monte MD Signed By: <Electronically signed by Max Monte MD in OV> 02/22/25 1455 DD/ 1435 TD/TT: 02/22/25 1447 Rigger: Procedure Note Donotuseinterpreter, Image - 02/22/2025 [facility] [address] [place] [address] Mammography Report Signed Patient: Jericho Grider#: [id number] : 1950cct:[id number] Age/Sex: 74 / FADM Date: 02/22/25 Loc: HO.MAMMO Attending Dr: Johanne Wheat MD Ordering Physician: Jared Wheatults: Date of Service: 02/22/25Follow Up: Procedure(s): XR DEXA axial skeleton Accession Number(s): [id number] cc: Johanne Wheat EXAMINATION: DXA BONE DENSITY AXIAL HISTORY: screening for osteoporosis, age >65, no prior TECHNIQUE: RainStor Dual energy absorptiometry (DEXA) of the lumbar spine, total left hip, and femoral neck was performed. COMPARISON: Comparison is made with the prior examination dated 12/12/2021. FINDINGS: The bone mineral density of the lumbar spine is 1.035 g/cm2, corresponding to a T-score of -1.2, and a Z-score of 0.0. This is indicative of osteopenia. This represents a BMD change of 6.0% compared to the prior exam. This is statistically significant. The bone mineral density of the left total hip is 0.976 g/cm2, corresponding to a T-score of -0.2, and a Z-score of 1.0. This is indicative of normal bone mineral density. This represents a BMD change of -0.7% compared to the prior exam. This is not statistically significant. The bone mineral density of the left femoral neck is 0.872 g/cm2, corresponding to a T-score of -1.2, and a Z-score of 0.3. This is indicative of osteopenia. This represents a BMD change of -2.9% compared to the prior exam. FRACTURE RISK: The FRAX index suggests a ten year probability of major osteoporotic fracture of 5.3%, and of hip fracture 0.7%. MM/XR DEXA axial skeleton IMPRESSION: Based on bone mineral density, and according to World Health Organization (WHO) criteria, the diagnosis is consistent with osteopenia. Statistically, 68% of repeat scans fall within 1 SD (+/- 0.010 g/cm2 for AP spine L1-L4) and 1 SD (+/- 0.012 g/cm2 for femur total) FRAX is a trademark of the [employer] for Metabolic Bone Disease, a World Health Organization (WHO) Collaborating Center. Electronically signed by: Max Monte MD 02/22/2025 02:55 PM EDT Dictated By: [place] Monte MD Signed By: <Electronically signed by Max Monte MD in OV> 02/22/25 1455 DD/ 1435 TD/TT: 02/22/25 1447 Rigger: us Johanne Wheat MD IMG DXA PROCEDURES Final Resul t * US Abdomen Limited (02/11/2025 1:40 PM EDT) Anatomical Region Laterality Modality Abdomen Ultrasound 02/11/2025 1:40 PM EDT Narrative 02/11/2025 2:03 PM EDT [address] [address] Ultrasound Report Signed Patient: Rica Grider MR#: [id number] : 1950 Acct:[id number] Age/Sex: 74 / F ADM Date: 02/11/25 Loc: HO.US Attending Dr: Johanne Wheat MD Ordering Physician: Johanne Wheat Date of Service: 02/11/25 Procedure(s): US abdomen limited Accession Number(s): [id number] cc: Johanne Wheat EXAMINATION: US ABDOMEN LIMITED CLINICAL INFORMATION: Left lower abdominal pain and localized bulge following hemicolectomy. Evaluate for abdominal hernia.. COMPARISON: None available. TECHNIQUE: Real-time grayscale imaging of the left abdomen in the region of concern was performed. Imaging performed in standing position. FINDINGS: There is no evidence of abdominal hernia in the region of bulge/concern. No abnormal fluid collection, mass, or abnormal lymph nodes. Only normal subcutaneous fat and soft tissues are seen in the region of concern. US/US abdomen limited IMPRESSION: No evidence of hernia or other abnormality in the region of concern in the left abdomen. Electronically signed by: Juan Jose Jackson MD 02/11/2025 02:00 PM EDT Dictated By: Juan Jose Jackson MD Signed By: <Electronically signed by Juan Jose Jackson MD in OV> 02/11/25 1400 DD/ 1340 TD/TT: 02/11/25 1342 Rigger: Procedure Note Donotuseinterpreter, Image - 02/11/[address] [address] Ultrasound Report Signed Patient: Hair GriderR#: [id number] : 1950cct:[id number] Age/Sex: 74 / FADM Date: 02/11/25 Loc: .US Attending Dr: Johanne Wheat MD Ordering Physician: Johanne Wheat Date of Service: 02/11/25 Procedure(s): US abdomen limited Accession Number(s): [id number] cc: Johanne Wheat EXAMINATION: US ABDOMEN LIMITED CLINICAL INFORMATION: Left lower abdominal pain and localized bulge following hemicolectomy. Evaluate for abdominal hernia.. COMPARISON: None available. TECHNIQUE: Real-time grayscale imaging of the left abdomen in the region of concern was performed. Imaging performed in standing position. FINDINGS: There is no evidence of abdominal hernia in the region of bulge/concern. No abnormal fluid collection, mass, or abnormal lymph nodes. Only normal subcutaneous fat and soft tissues are seen in the region of concern. US/US abdomen limited IMPRESSION: No evidence of hernia or other abnormality in the region of concern in the left abdomen. Electronically signed by: Juan Jose Jackson MD 02/11/2025 02:00 PM EDT RP Workstation: [id number] Dictated By: Juan Jose Jackson MD Signed By: <Electronically signed by Juan Jose Jackson MD in OV> 02/11/25 1400 DD/ 1340 TD/TT: 02/11/25 1342 Rigger: Johanne Wheat MD IMG US PROCEDURES Final Result * Cortisol Random (01/05/2025 8:26 AM EDT) Cortisol Random 17.7 ug/dL [facility] Comment:Reference Range*: Be fore 10 am 6.2-19.4 ug/dL After 5 pm 2.3-11.9 ug/dL*Please interpret above results accordingly.This test was performed using the Jaime chemiluminescentmethod. Values obtained from different assay methods cannotbe used interchangeably.Patients receiving fludrocortisone, prednisolone orprednisone may show artificially elevated cortisol valuesdue to cross-reactivity. 01/05/2025 8:26 AM EDT 01/05/2025 11:13 AM EDT Johanne Wheat MD LAB BLOOD ORDERABLES Final Res ult [facility] [address] [place] [phone] * (ABNORMAL) TSH W/Reflex to FT4 (01/05/2025 8:26 AM EDT) TSH reflex Free T4 15.06(H) 0.32 - 4.0 uIU/mL [facility] Blood Venous blood specimen / Unknown 01/05/2025 8:26 AM EDT 01/05/2025 11:13 AM EDT us Johanne Wheat MD LAB BLOOD ORDERABLES Final Res ult [facility] [address] [place] [phone] * CBC auto differential (01/05/2025 8:26 AM EDT) Pathologist [facility] White Blood Count 5.9 4.8 - 10.8 X10*3/uL [facility] Red Blood Count 4.69 4.20 - 5.50 X10*6/uL [facility] Hemoglobin 14.1 12.0 - 16.0 g/dl [facility] Hematocrit 42.8 37.0 - 47.0 % [facility] Mean Corpuscular Volume 91.3 80.0 - 98.0 fL [facility] Mean Corpuscular Hemoglobin 30.1 27.0 - 33.0 pg [facility] Mean Corpuscular HGB Conc 32.9 31.0 - 35.0 g/dl [facility] Red Cell Distribution Width 13.8 11.0 - 16.0 % [facility] Platelet Count 261 160 - 400 X10*3/uL [facility] Mean Platelet Volume 11.4 9.4 - 12.3 fL [facility] Neutrophils Percent Auto 56.2 45 - 73 % [facility] Imm Gran Pct Auto 0.3 0.0 - 0.4 % [facility] Lymphocytes Percent Auto 29.0 20 - 40 % [facility] Monocytes Percent Auto 10.7 2 - 11 % [facility] Eosinophils Percent Auto 3.1 0 - 4 % [facility] Basophils Percent Auto 0.7 0 - 2 % [facility] NRBC Pct Auto 0.0 0.0 - 0.2 /100WBC [facility] Neutrophils Absolute Auto 3.3 2.0 - 8.3 x10*3/uL [facility] Imm Gran Abs Auto 0.02 0.00 - 0.03 X10*3/uL [facility] Lymphocytes Absolute Auto 1.7 1.2 - 4.9 X10*3/uL [facility] Monocytes Absolute Auto 0.6 0.1 - 1.2 X10*3/uL [facility] Eosinophils Absolute Auto 0.2 0.0 - 0.4 X10*3/uL [facility] Basophils Absolute Auto 0.0 0.0 - 0.2 X10*3/uL [facility] NRBC Abs Auto 0.000 0.0 - 0.012 X10*3/uL [facility] Blood Venous blood specimen / Unknown 01/05/2025 8:26 AM EDT 01/05/2025 11:07 AM EDT Johanne Wheat MD LAB BLOOD ORDERABLES Final Res ult Performing Organization Address City/[facility]/ZIP Co de Phone Number [facility] [address] [place] [phone] * T4, Free (01/05/2025 8:26 AM EDT) Free T4 (Free Thyroxine) 1.01 0.71 - 1.85 ng/dL [facility] 01/05/2025 8:26 AM EDT 01/05/2025 11:13 AM EDT Johanne Wheat MD LAB BLOOD ORDERABLES Final Res ult Performing Organization Address City/[facility]/ZIP Co de Phone Number [facility] [address] [place] [phone] * (ABNORMAL) Lipid Panel, Standard (01/05/2025 8:26 AM EDT) Triglycerides 158(H) <150 mg/dL [facility] Comment:Desirable Triglyceri de: less than 150 mg/dLBorderline High Triglyceride 150-199 mg/dLHigh Triglyceride: 200-499 mg/dLVery High Triglyceride: greater than or equal to 5OO mg/dL Cholesterol 236(H) <200 mg/dL [facility] Comment:Desirable Cholestero l: less than 200 mg/dLBorderline High Cholesterol: 200-239 mg/dLHigh Cholesterol: greater than 239 mg/dL LDL Cholesterol Calculated 155(H) <100 mg/dL [facility] Comment:Desirable LDL: less than 100 mg/dLNear Optimal/Above Optimal LDL: 110- 129 mg/dLBorderline High LDL: 130-159 mg/dLHigh LDL: 160-189 mg/dLVery High LDL: greater than or equal to 190 mg/dL HDL Cholesterol 50 >40 mg/dL [facility] Comment:Desirable HDL: great er than 40 mg/dL Note: This HDL assay may give artificially low results in patients with liver disease. Blood Venous blood specimen / Unknown 01/05/2025 8:26 AM EDT 01/05/2025 11:13 AM EDT us Johanne Wheat MD LAB BLOOD ORDERABLES Final Res ult [facility] [address] [place] [phone] * (ABNORMAL) Comprehensive Metabolic Panel (01/05/2025 8:26 AM EDT) Sodium 142 135 - 145 mmol/L [facility] Potassium 3.6 3.3 - 5.1 mmol/L [facility] Chloride 108 96 - 108 mmol/L [facility] Carbon Dioxide 28 22 - 29 mmol/L [facility] Anion Gap 10(L) 12 - 20 [facility] Urea Nitrogen (BUN) 9 9 - 16 mg/dL [facility] Creatinine, Serum 0.65 0.5 - 1.4 mg/dL [facility] Estimated Glomerular Filt Rate >60 [facility] Comment:Chronic Kidney Disea se: Estimated GFR < 60 mL/min/[id number] Kidney Disease: Estimated GFR < 15 mL/min/1.73m2 Glucose 95 60 - 115 mg/dL [facility] Calcium 9.4 8.4 - 10.2 mg/dL [facility] Bilirubin, Total 0.8 0.0 - 1.0 mg/dL [facility] Aspartate Amino Transferase 119(H) 5 - 31 U/L [facility] Alanine Aminotransferase 129(H) 0 - 31 U/L [facility] Total Protein 7.1 6.5 - 8.0 g/dL [facility] Albumin Level 3.9 3.5 - 5.0 g/dL [facility] Alkaline Phosphatase 83 39 - 117 U/L [facility] Blood Venous blood specimen / Unknown 01/05/2025 8:26 AM EDT 01/05/2025 11:13 AM EDT Johanne Wheat MD LAB BLOOD ORDERABLES Final Res ult [facility] [address] [place] [phone] * POCT HGB A1C (01/03/2025 2:50 PM EDT) Hemoglobin A1C 5.5 4.0 - 5.7 % QC Media Lot # [id number] Lot# Expiration Date Blood 01/03/2025 2:50 PM EDT Johanne Wheat MD POINT OF CARE TEST ENTER/EDIT ORDERABLES Final Result * POCT Glucose (01/03/2025 2:49 PM EDT) Glucose Blood, POC 97 60 - 200 mg/dL QC Media Lot # [id number] Lot# Expiration Date Blood Capillary blood specimen / Unknown 01/03/2025 2:49 PM EDT Johanne Wheat MD POINT OF CARE TEST ENTER/EDIT ORDERABLES Final Result * (ABNORMAL) Colonoscopy (04/16/2023) Colonoscopy Abnormal(A ) Normal Narrative Johanne Wheat MD - 04/16/202304/2023 colonoscopy showed large sigmoid polyp, pathology consistent with invasive carcinoma. She was admitted on 05/22/23 to [facility] for elective surgery and underwent Exploratory laparoscopy, open left colectomy, lysis of adhesions, mobilization of the splenic flexure and appendectomy [facility] Provider HEALTH MAINTENANCE Final Result * BI Mammogram Screening Tomosynthesis Bilateral (02/04/2023 2:05 PM EDT) Anatomical Region Laterality Modality Breast Bilateral Mammography 02/04/2023 2:05 PM EDT Narrative 02/04/2023 5:27 PM EDT [address] [place] [address] Mammography Report Signed Patient: Rica Grider MR#: [id number] : 1950 Acct:[id number] Age/Sex: 72 / F ADM Date: 02/04/23 Loc: HO.MAMMO Attending Dr: Johanne Wheat MD Ordering Physician: Johanne Wheat Results: 1Negative Date of Service: 02/04/23 Follow Up: 1 Year From Orig inal Mammogram Procedure(s): MM tomosynthesis screening BI Accession Number(s): [id number] cc: Johanne Wheat EXAMINATION: MM SCREENING DIGITAL BREAST TOMOSYNTHESIS, BILATERAL CLINICAL INFORMATION: Screening. Asymptomatic. COMPARISON: Mammography: This study is compared with prior exams dating back to 2016. TECHNIQUE: Digital breast tomosynthesis is performed in [...] in OV> 02/04/23 1725 DD/ 1405 TD/TT: Rigger: Procedure Note Donotuseinterpreter, Image - 02/04/2023 [facility]'s [address] [place] [address] Mammography Report Signed Patient: Jericho Grider#: [id number] : 2Acct:[id number] Age/Sex: 72 / FADM Date: 02/04/23 Loc: ROSA Attending Dr: Johanne Wheat MD Ordering Physician: Jared Wheatults: 1Negative Date of Service: 02/04/23Follow Up: 1 Year From Orig inal Mammogram Procedure(s): MM tomosynthesis screening BI Accession Number(s): [id number] cc: Johanne Wheat EXAMINATION: MM SCREENING DIGITAL BREAST TOMOSYNTHESIS, BILATERAL CLINICAL INFORMATION: Screening. Asymptomatic. COMPARISON: Mammography: This study is compared with prior exams dating back to 2016. TECHNIQUE: Digital breast tomosynthesis is performed in [...] in OV> 02/04/23 1725 DD/ 1405 TD/TT: Rigger: Johanne Wheat MD IMG BI PROCEDURES Final Result * HEPATITIS C AB W/REFL TO HCV RNA, QN, PCR (12/06/2021 10:40 AM EDT) HEPATITIS C ANTIBODY NON-REACT SUBHASH NON-REACT SUBHASH [facility] INDEX 0.10 <1.00 [facility] Comment: HCV antibody was non-reactive. There is no laboratory evidence of HCV infection. In most cases, no further action is required. However, if recent HCV exposure is suspected, a test for HCV RNA (test code 15331) is suggested. For additional information please refer to http://Innovid.Macaw/faq/AOY65c3 (This link is being provided for informational/ educational purposes only.) 12/06/2021 10:4 0 AM EDT Antonia Thapa NP HISTORICAL/NON ORDERABLE LABS F inal Result Performing Organization Address City/State/[facility] Co de Phone Number [facility] [address] from Last 3 Months or Most Recently Relevant to Health Maintenance Insurance MEDICARE [facility] STANDARD Care Teams Wheat Buyer Relationship Specialty Start Date End Date Johanne Wheat MD [address] [place] [phone] PCP - General Family Medicine 02/05/22
--- OUTSIDE RECORDS SUMMARY | 2025-02-22 16:49 | XMS_ITS | Encounter Summary ---
Author Organization [employer] Address [address] [facility] 7t [place] [address] Care Team Providers Care Unified Communications Engineer Name Role Phone Johanne Wheat MD Primary Care Provider [phone] Encounter Details Date Type Department Care Team (Late st Contact Info) Description 01/31/2025 Orders Only [facility] [address] [place], [place] [phone] Johanne Wheat MD [address] [place], [place] [phone] Social History Tobacco Use Types Packs/Day Years [...] documented as of this encounter Care Teams Unified Communications Engineer Relationship Specialty Start Date End Date Johanne Wheat MD [address] [place] [address] PCP - General Family Medicine 02/05/22 documented as of this encounter
--- OUTSIDE RECORDS SUMMARY | 2025-02-22 16:49 | XMS_ITS | Encounter Summary ---
Author Organization [employer] Address [address] [facility] [address] [place] [address] Care Team Providers Care Vending Technician Name Role Phone Johanne Wheat MD Primary Care Provider [phone] Encounter Details Date Type Department Care Team ([facility] st Contact Info) Description 09/04/2022 Orders Only [facility] [address] [place], [place] [phone] Johanne Wheat MD [address] [place], [place] [phone] Social History Tobacco Use Types Packs/Day Years [...] on filedocumented in this encounter Care Teams Vending Technician Relationship Specialty Start Date End Date Johanne Wheat MD [address] [place] [phone] PCP - General Family Medicine 02/05/22 documented as of this encounter
--- OUTSIDE RECORDS SUMMARY | 2025-02-22 16:49 | XMS_ITS | Encounter Summary ---
Author Organization [employer] Address [address] [place] [address] [address] [place] [address] Care Team Providers Care Sprayer Insecticide Name Role Phone Johanne Wheat MD Primary Care Provider [phone] Reason for Visit * Reason Onset Date Comments Results 01/31/2025 Encounter Details Date Type Department Care Team ([facility] st Contact Info) Description 01/31/2025 Results Follow-Up [facility] [address] [place] [address] Johanne Wheat MD [address] [place] [address] POCT Glucose, POCT HGB A1C, TSH W/Reflex [...] TC placed to the pt with S hotel reservation agent #[id number] to inform and inquire about the pt [...] see PCP inoffice. ----- Message from Johanne Whaet MD sent at 01/31/2025 10:29 AM EDT [...] documented as of this encounter Care Teams Sprayer Insecticide Relationship Specialty Start Date End Date Johanne Wheat MD [address] [place] [id number] PCP - General Family Medicine 02/05/22 documented as of this encounter
--- OUTSIDE RECORDS SUMMARY | 2025-02-22 16:49 | XMS_ITS | Encounter Summary ---
Author Organization [employer] Address [address] [place] [address] [address] [place] [address] Care Team Providers Care Manager Of Creative Services Name Role Phone Johanne Wheat MD Primary Care Provider [phone] Encounter Details Date Type Department Care Team (Late st Contact Info) Description 11/08/2022 Abstract [facility] [address] [place] [address] Johanne Wheat MD [address] [place] [address] Social History Tobacco Use Types Packs/Day Years [...] on filedocumented in this encounter Care Teams Manager Of Creative Services Relationship Specialty Start Date End Date Johanne Wheat MD [address] [place], [place] [phone] PCP - General Family Medicine 02/05/22 documented as of this encounter
--- OUTSIDE RECORDS SUMMARY | 2025-02-22 16:49 | XMS_ITS | Encounter Summary ---
Author Organization [employer] Address [address] [facility] [address] [place] [address] Care Team Providers Care Property And Equipment Clerk Name Role Phone Johanne Wheat MD Primary Care Provider [phone] Reason for Visit * Reason Onset Date Comments Appointment Request 01/19/2024 Encounter Details Date Type Department Care Team ([facility] st Contact Info) Description 01/19/2024 Telephone [facility] [address] [place], [place] [phone] Johanne Wheat MD [address] [place], [place] [phone] Appointment Request Social History Tobacco Use Types [...] on filedocumented in this encounter Care Teams Property And Equipment Clerk Relationship Specialty Start Date End Date Johanne Wheat MD [address] [place] [id number] PCP - General Family Medicine 02/05/22 documented as of this encounter
== END 2025-02-22 14:16 | disposition home or self-care (01) ==
LOC: HO.MAMMO 14:15
PROVIDERS: PCP General Practice; Visit Provider General Practice
DX: Z12.31 Encounter for screening mammogram for malignant neoplasm of breast (principal); Z13.820 Encounter for screening for osteoporosis; Z78.0 Asymptomatic menopausal state
CPT/HCPCS: 77063; 77067; 77080

== ENCOUNTER → 2025-02-22 14:30 | Outpatient (BNV) | payer MEDICARE, MEDICAID, SELFPAY | PROVIDERS: PCP General Practice; Visit Provider Radiology Diagnostic Radiology | DX: E28.39 Other primary ovarian failure (principal) | CPT/HCPCS: 77080 ==